=== PATIENT | female | born 1940 | race Two or more races ===

== ENCOUNTER 2020-03-04 23:32 | Inpatient (IN) | payer MEDICARE, MEDICAID ==
[~2020-03-04] VITALS: Ht 162.6 cm; Wt 98.7 kg
[2020-03-05] VITALS (21 sets, daily range): BP systolic 91–170; BP diastolic 48–85
[2020-03-05 00:10] LABS: BASO % 0 % (0-3); EOS % 0 % (0-3); HEMOGLOBIN 10.4 g/dL (12.0-15.5); LYMPH % 13 % (24-48); MEAN CORPUSCULAR HEMOGLOBIN 32 pg (25-35); MEAN CORPUSCULAR HGB CONC 35 g/dL (31-37); MEAN CORPUSCULAR VOLUME 91 fL (79-100); MONO # 0.2 x10^3/uL (0.0-1.1); MONO % 2 % (0-9); NEUT # 6.6 x10^3/uL (1.8-7.7); NEUT % 85 % (31-73); PLATELET COUNT 270 x10^3/uL (140-400); RED BLOOD COUNT 3.29 x10^6/uL (3.50-5.40); RED CELL DISTRIBUTION WIDTH 14.6 % (11.5-14.5); WHITE BLOOD COUNT 7.8 x10^3/uL (4.0-11.0)
[2020-03-05 00:24] LABS: CALCIUM 8.2 mg/dL (8.5-10.1); CREATININE 1.2 mg/dL (0.6-1.0); GFR 43.4; POTASSIUM 4.4 mmol/L (3.5-5.1)
[2020-03-05 00:32] LABS: ALBUMIN 2.4 g/dL (3.4-5.0); ALBUMIN/GLOBULIN RATIO 0.5 (1.0-1.7); TOTAL BILIRUBIN 0.3 mg/dL (0.2-1.0); TOTAL PROTEIN 7.7 g/dL (6.4-8.2)
[2020-03-05] MEDS ORDERED: ACETAMINOPHEN 500 MG TABLET PO ONE (01:00)
--- NOTE | 2020-03-05 01:26 | PHYS DOC ---
Past Medical History Past Medical History: Anxiety, Arthritis, GERD, Glaucoma, Hypertension Additional Past Medical Histor: ANEMIA SCHIZOAFFECTIVE DISORDER Smoking Status: Unknown if ever smoked Alcohol Use: None General Adult EDM: Chief Complaint: SHORTNESS OF BREATH HPI: HPI: Patient is a 79 year old female with a past medical history history of anxiety arthritis GERD glaucoma hypertension anemia presents for the evaluation Of hypoxia. Patient recently diagnosed with COVID. [facility] patient was having decreased oxygen saturation. Patient was on 4 L nasal cannula with an oxygen saturation of 73%. On arrival patient was on 10 L nonrebreather with oxygen saturations in the 90s. At the time my examination patient on 10 L nonrebreather with oxygen saturation of 93%. She is febrile with temperature of 101.4 Patient has no complaints. She denies any headache chest pain. Review of Systems: Review of Systems: Constitutional: Denies fever or chills. [] Eyes: Denies change in visual acuity. [] HENT: Denies nasal congestion or sore throat. [] Respiratory: Denies cough or shortness of breath. [] Cardiovascular: Denies chest pain or edema. [] GI: Denies abdominal pain, nausea, vomiting, bloody stools or diarrhea. [] : Denies dysuria. [] Musculoskeletal: Denies back pain or joint pain. [] Integument: Denies rash. [] Neurologic: Denies headache, focal weakness or sensory changes. [] Endocrine: Denies polyuria or polydipsia. [] Lymphatic: Denies swollen glands. [] Psychiatric: Denies depression or anxiety. [] Heart Score: Risk Factors: Risk Factors: DM, Current or recent (<one month) smoker, HTN, HLP, family history of CAD, obesity. Risk Scores: Score 0 - 3: 2.5% MACE over next 6 weeks - Discharge Home Score 4 - 6: 20.3% MACE over next 6 weeks - Admit for Clinical Observation Score 7 - 10: 72.7% MACE over next 6 weeks - Early Invasive Strategies Current Medications: Current Medications Medications (Trade) Dose Ordered Sig/Jose Maria Start Time Stop Time Status Last Admin Dose Admin Acetaminophen (Tylenol) 1,000 mg 1X ONCE 03/05/20 01:00 03/05/20 01:01 DC Allergies: Allergies: Allergies Coded Allergies Type Severity Reaction Last Updated Verified haloperidol Allergy Unknown Unknown 03/05/20 Yes Physical Exam: PE: Constitutional: Well developed, well nourished, no acute distress, non-toxic appearance. [] HENT: Normocephalic, atraumatic, bilateral external ears normal, oropharynx moist, no oral exudates, nose normal. [] Eyes: EOMI, conjunctiva normal, no discharge. [] Neck: Normal range of motion, no tenderness, supple, no stridor. [] Cardiovascular: Tachycardia Lungs & Thorax: Bilateral breath sounds clear to auscultation [] Abdomen: Abdomen soft Skin: Warm, dry, no erythema, no rash. [] Back: No tenderness, Extremities: No tenderness, no cyanosis, no clubbing, ROM intact, no edema. [] Neurologic: Alert and oriented X 3, normal motor function, normal sensory function, no focal deficits noted. [] Psychologic: Affect normal, judgement normal, mood normal. [] Current Patient Data: Labs: Laboratory Tests Test 03/04/20 23:55 White Blood Count 7.8 x10^3/uL (4.0-11.0) Red Blood Count 3.29 x10^6/uL (3.50-5.40) L Hemoglobin 10.4 g/dL (12.0-15.5) L Hematocrit 30.0 % (36.0-47.0) L Mean Corpuscular Volume 91 fL (79-100) Mean Corpuscular Hemoglobin 32 pg (25-35) Mean Corpuscular Hemoglobin Concent 35 g/dL (31-37) Red Cell Distribution Width 14.6 % (11.5-14.5) H Platelet Count 270 x10^3/uL (140-400) Neutrophils (%) (Auto) 85 % (31-73) H Lymphocytes (%) (Auto) 13 % (24-48) L Monocytes (%) (Auto) 2 % (0-9) Eosinophils (%) (Auto) 0 % (0-3) Basophils (%) (Auto) 0 % (0-3) Neutrophils # (Auto) 6.6 x10^3/uL (1.8-7.7) Lymphocytes # (Auto) 1.0 x10^3/uL (1.0-4.8) Monocytes # (Auto) 0.2 x10^3/uL (0.0-1.1) Eosinophils # (Auto) 0.0 x10^3/uL (0.0-0.7) Basophils # (Auto) 0.0 x10^3/uL (0.0-0.2) Sodium Level 128 mmol/L (136-145) L Potassium Level 4.4 mmol/L (3.5-5.1) Chloride Level 94 mmol/L (98-107) L Carbon Dioxide Level 23 mmol/L (21-32) Anion Gap 11 (6-14) Blood Urea Nitrogen 15 mg/dL (7-20) Creatinine 1.2 mg/dL (0.6-1.0) H Estimated GFR (Cockcroft-Gault) 43.4 BUN/Creatinine Ratio 13 (6-20) Glucose Level 104 mg/dL (70-99) H Calcium Level 8.2 mg/dL (8.5-10.1) L Total Bilirubin 0.3 mg/dL (0.2-1.0) Aspartate Amino Transferase (AST) 70 U/L (15-37) H Alanine Aminotransferase (ALT) 39 U/L (14-59) Alkaline Phosphatase 53 U/L (46-116) Troponin I Quantitative 0.098 ng/mL (0.000-0.055) DV-Vfo-X-Type Natriuretic Peptide 899 pg/mL (0-449) H Total Protein 7.7 g/dL (6.4-8.2) Albumin 2.4 g/dL (3.4-5.0) L Albumin/Globulin Ratio 0.5 (1.0-1.7) L Laboratory Tests 03/04/20 23:55 Laboratory Tests 03/04/20 23:55 Vital Signs: Vital Signs Date Time Temp Pulse Resp B/P (MAP) Pulse Ox O2 Delivery O2 Flow Rate FiO2 03/04/20 23:40 101.4 107 22 113/55 (74) 94 NonRebreather Mask 10.0 101.4 EKG: EKG: [] 0011HRS Sinus tachycardia rate 106 no stemi Radiology/Procedures: Radiology/Procedures: []Two AP erect portable digital radiographs of the chest were obtained. Comparison is made to a CT scan of the chest dated 05/03/2009. The Patient is rotated to the right. The cardiac silhouette is mildly enlarged. The thoracic aorta is tortuous. A left perihilar infiltrate is seen. An area of infiltrate is seen involving the right upper lobe. No pneumothorax or pleural effusion is noted. Degenerative changes are seen involving the thoracic spine along with both shoulders. IMPRESSION: Right upper lobe and left perihilar infiltrates. Course & Med Decision Making: Course & Med Decision Making Pertinent Labs and Imaging studies reviewed. (See chart for details) [] Dragon Disclaimer: Dragon Disclaimer: This electronic medical record was generated, in whole or in part, using a voice recognition dictation system. Departure Departure Impression: Primary Impression: COVID-19 Additional Impressions: Hypoxia Elevated troponin Elevated brain natriuretic peptide (BNP) level Pneumonia Disposition: ADMITTED INPATIENT Condition: STABLE Referrals: MALLORY CRUZ MD (PCP) Justicifation of Admission Dx: Justifications for Admission: Justification of Admission Dx: Yes Aspiration Pneumonia: Hypoxemia KATIE AVILES I DO Mar 05, 2020 01:26
[2020-03-05 01:49] LABS: BASE EXCESS ABG 0 mmol/L (-3-3); HCO3 ABG 24 mmol/L (21-28); PCO2 ABG 36 mmHg (35-46); PO2 ABG 59 mmHg (65-108); SAT O2 ABG 90 % (92-99)
[2020-03-05 01:54] LABS: CORRECTED PCO2 ABG 38 mmHg; CORRECTED PH ABG 7.42; CORRECTED PO2 ABG 65 mmHg
--- NOTE | 2020-03-05 02:39 | RAD ---
AP portable chest radiograph 03/04/2020 Clinical History: Shortness of breath. Two AP erect portable digital radiographs of the chest were obtained. Comparison is made to a CT scan of the chest dated 05/03/2009. The Patient is rotated to the right. The cardiac silhouette is mildly enlarged. The thoracic aorta is tortuous. A left perihilar infiltrate is seen. An area of infiltrate is seen involving the right upper lobe. No pneumothorax or pleural effusion is noted. Degenerative changes are seen involving the thoracic spine along with both shoulders. IMPRESSION: Right upper lobe and left perihilar infiltrates. Electronically signed by: Celestino Champagne MD (03/05/2020 2:36 AM) [id number]
[2020-03-05] MEDS ORDERED: cefTRIAXone IV Push 1 GM VIAL. IVP ONE (02:45)
[2020-03-05] MEDS ORDERED: ASPIRIN CHEWABLE 81 MG TABLET. PO ONE (02:45)
[2020-03-05] MEDS ORDERED: AZITHRMYCN 500MG IVPB FOR OMNI 250 ML IV ONE (02:45)
[2020-03-05 02:57] LABS: FIO2 ABG 100
[2020-03-05] MEDS ORDERED: DULO30CA2 PO (05:12)
[2020-03-05] MEDS ORDERED: MIRA25TA PO (05:13)
[2020-03-05] MEDS ORDERED: FURO-69 PO (05:13)
[2020-03-05] MEDS ORDERED: HYDR-2765 PO (05:14)
[2020-03-05] MEDS ORDERED: AMLO10TA4 PO (05:18)
[2020-03-05] MEDS ORDERED: RISP1TAB43 PO (05:18)
[2020-03-05] MEDS ORDERED: GUAI118S36 PO (05:18)
[2020-03-05] MEDS ORDERED: ACET325T9 PO (05:18)
[2020-03-05] MEDS ORDERED: ONDA4TAB7 PO (05:18)
[2020-03-05] MEDS ORDERED: TIMO5DRO21 LEFTEYE (05:18)
[2020-03-05] MEDS ORDERED: HYDROcodone/APAP 7.5/325MG 1 TAB TABLET PO PRN (08:15)
--- NOTE | 2020-03-05 08:27 | PDOC1 ---
History and Physical Date of Admission Date of Admission DATE: 03/05/20 TIME: 08:06 Identification/Chief Complaint Chief Complaint Shortness of breath Source Source: Caregiver, Chart review, Patient History of Present Illness History of Present Illness Ms. Leija is a 79yo F SNF resident of [facility] w/ PMHx Anxiety, Arthritis, GERD, Glaucoma, Hypertension, anemia, schizoaffective disorder who presents to ED via EMS from SNF with decreased oxygen saturation. Patient was on 4 L nasal cannula with an oxygen saturation of 73%. In ED she was on 10 L nonrebreather with oxygen saturations in the 90s. Febrile with temperature of 101.4F. Was recently diagnosed with SARS-CoV-2 (COVID19) at [facility], lab report not available, unclear what day she was tested positive, though there is report of a small cluster of cases from that facility. Patient has no complaints, but when asked about shortness of breath and cough she says yes. She denies any headache chest pain. Visibly with rapid shallow breathing. Somewhat difficult to understand CXR with right upper lobe and left perihilar infiltrates. ABG 7.42/30 8/65 on 10 L. WBC 7.8, Hb 10.4, platelets 270, NA 128, K4.4, BUN 15, CR 1.2, glucose 104, calcium 8.2, albumin 2.4, bili 0.3, AST elevated at 70, ALT 39, alk phos 53, BNP 899, troponin 0 0.098, lactate normal. Admitted to ICU COVID unit for further care. Past Medical History Cardiovascular: HTN Psych: Psychosis (Schizoaffective disorder) Current Problem List Problem List Problems Medical Problems: (1) COVID-19 Status: Acute (2) Elevated brain natriuretic peptide (BNP) level Status: Acute (3) Elevated troponin Status: Acute (4) Hypoxia Status: Acute (5) Pneumonia Status: Acute Current Medications Current Medications Current Medications Acetaminophen (Tylenol) 1,000 mg 1X ONCE PO Last administered on 03/05/20at 01:48; Start 03/05/20 at 01:00; Stop 03/05/20 at 01:01; Status DC Aspirin (Aspirin Chewable) 324 mg 1X ONCE PO Last administered on 03/05/20at 03:15; Start 03/05/20 at 02:45; Stop 03/05/20 at 02:46; Status DC Ceftriaxone Sodium (Rocephin) 1 gm 1X ONCE IVP Last administered on 03/05/20at 03:15; Start 03/05/20 at 02:45; Stop 03/05/20 at 02:46; Status DC Azithromycin 250 ml @ 250 mls/hr 1X ONCE IV Last administered on 03/05/20at 03:16; Start 03/05/20 at 02:45; Stop 03/05/20 at 03:44; Status DC Active Scripts Active Reported Zofran (Ondansetron Hcl) 4 Mg Tablet 1 Tab PO Q6HRS Tylenol (Acetaminophen) 325 Mg Tablet 0 PO PRN Q4HRS Davidssin Dm Cough & Chest Syrup (Guaifenesin/Dextromethorphan) 118 Ml Syrup 10 Ml PO QID 12 Days Timoptic 0.25% (Timolol Maleate) 5 Ml Drops 1 Drop LEFTEYE DAILY 30 Days Risperdal (Risperidone) 1 Mg Tablet 0.75 Tab PO QHS 30 Days Norvasc (Amlodipine Besylate) 10 Mg Tablet 10 Mg PO DAILY Hydrocodone-Apap 7.5-325 (Hydrocodone Bit/Acetaminophen) 1 Tab Tablet 1 Tab PO PRN Q6HRS PRN Myrbetriq (Mirabegron) 25 Mg Tab.er.24h 25 Mg PO DAILY Lasix (Furosemide) 20 Mg Tablet 1 Tab PO DAILY 30 Days Cymbalta (Duloxetine Hcl) 30 Mg Capsule. 1 Cap PO DAILY Allergies Allergies: Coded Allergies: haloperidol (Verified Allergy, Unknown, Unknown, 03/05/20) DETENTION RECORDS STATE ALLERGY ROS General: YES: Fatigue, Malaise; No: Chills, Night Sweats, Appetite, Other PSYCHOLOGICAL ROS: YES: Anxiety, Behavioral Disorder, Disorientation, Memory difficulties, Mood Swings, Obsessive thoughts; No: Concentration difficultie, Decreased libido, Depression, Hallucinations, Hostility, Irritablity, Physical abuse, Sexual abuse, Sleep disturbances, Suicidal ideation, Other Eyes: No Blurry vision, No Decreased vision, No Double vision, No Dry eyes, No Excessive tearing, No Eye Pain, No Itchy Eyes, No Loss of vision, No Photophobia, No Scotomata, No Uses contacts, No Uses glasses, No Other HEENT: No: Heacaches, Visual Changes, Hearing change, Nasal congestion, Nasal discharge, Oral lesions, Sinus pain, Sore Throat, Epistaxis, Sneezing, Snoring, Tinnitus, Vertigo, Vocal changes, Other ALLERGY AND IMMUNOLOGY: No: Hives, Insect Bite Sensitivity, Itchy/Watery Eyes, Nasal Congestion, Post Nasal Drip, Seasonal Allergies, Other Hematological and Lymphatic: No: Bleeding Problems, Blood Clots, Blood Transfus ions, Brusing, Night Sweats, Pallor, Swollen Lymph Nodes, Other ENDOCRINE: No: Breast Changes, Galactorrhea, Hair Pattern Changes, Hot Flashes, Malaise/lethargy, Mood Swings, Palpitations, Polydipsia/polyuria, Skin Changes, Temperature Intolerance, Unexpected Weight Changes, Other Breast: No New/Changing Breast Lumps, No Nipple changes, No Nipple discharge, No Other Respiratory: YES: Cough, Shortness of breath, Tachypnea, Wheezing; No: Hemoptysis, Orthopnea, Pleuritic Pain, SOB with excertion, Sputum Changes, Stridor, Other Cardiovascular: No Chest Pain, No Palpitations, No Orthopnea, No Paroxysmal Noc. Dyspnea, No Edema, No Lt Headedness, No Other Gastrointestinal: No Nausea, No Vomiting, No Abdominal Pain, No Diarrhea, No Constipation, No Melena, No Hematochezia, No Other Genitourinary: No Dysuria, No Frequency, No Incontinence, No Hematuria, No Retention, No Discharge, No Urgency, No Pain, No Flank Pain, No Other, No , No , No , No , No , No , No Musculoskeletal: Yes Gait Disturbance; No Joint Pain, No Joint Stiffness, No Joint Swelling, No Muscle Pain, No Muscular Weakness, No Pain In:, No Swelling In:, No Other Neurological: No Behavorial Changes, No Bowel/Bladder ControlChng, No Confusion, No Dizziness, No Gait Disturbance, No Headaches, No Impaired Coord/balance, No Memory Loss, No Numbness/Tingling, No Seizures, No Speech Problems, No Tremors, No Visual Changes, No Weakness, No Other Skin: No Dry Skin, No Eczema, No Hair Changes, No Lumps, No Mole Changes, No Mottling, No Nail Changes, No Pruritus, No Rash, No Skin Lesion Changes, No Other, No Acne Physical Exam General: Alert, Cooperative, severe distress HEENT: Atraumatic, PERRLA, EOMI, Mucous membr. moist/pink, Other (Hard of hearing) Lungs: Other (Rhonchi bibasilar) Heart: S1S2, RRR, no thrills, no rubs, no gallops, no murmurs Male Genitals Exam: normal genitalia, normal prostate Extremities: No clubbing, No cyanosis, No edema, Normal pulses, No tenderness/swelling Skin: No rashes, No breakdown, No significant lesion Neuro: Other (Contracted bilateral lower extremities) Psych/Mental Status: Other (Confused) Vitals Vitals Vital Signs Date Time Temp Pulse Resp B/P (MAP) Pulse Ox O2 Delivery O2 Flow Rate FiO2 03/05/20 07:00 98.9 100 18 106/61 (76) 96 NonRebreather Mask 15.0 98.9 Labs Labs Laboratory Tests Test 03/04/20 23:55 03/05/20 00:08 03/05/20 01:48 White Blood Count 7.8 x10^3/uL (4.0-11.0) Red Blood Count 3.29 x10^6/uL (3.50-5.40) Hemoglobin 10.4 g/dL (12.0-15.5) Hematocrit 30.0 % (36.0-47.0) Mean Corpuscular Volume 91 fL (79-100) Mean Corpuscular Hemoglobin 32 pg (25-35) Mean Corpuscular Hemoglobin Concent 35 g/dL (31-37) Red Cell Distribution Width 14.6 % (11.5-14.5) Platelet Count 270 x10^3/uL (140-400) Neutrophils (%) (Auto) 85 % (31-73) Lymphocytes (%) (Auto) 13 % (24-48) Monocytes (%) (Auto) 2 % (0-9) Eosinophils (%) (Auto) 0 % (0-3) Basophils (%) (Auto) 0 % (0-3) Neutrophils # (Auto) 6.6 x10^3/uL (1.8-7.7) Lymphocytes # (Auto) 1.0 x10^3/uL (1.0-4.8) Monocytes # (Auto) 0.2 x10^3/uL (0.0-1.1) Eosinophils # (Auto) 0.0 x10^3/uL (0.0-0.7) Basophils # (Auto) 0.0 x10^3/uL (0.0-0.2) Sodium Level 128 mmol/L (136-145) Potassium Level 4.4 mmol/L (3.5-5.1) Chloride Level 94 mmol/L (98-107) Carbon Dioxide Level 23 mmol/L (21-32) Anion Gap 11 (6-14) Blood Urea Nitrogen 15 mg/dL (7-20) Creatinine 1.2 mg/dL (0.6-1.0) Estimated GFR (Cockcroft-Gault) 43.4 BUN/Creatinine Ratio 13 (6-20) Glucose Level 104 mg/dL (70-99) Calcium Level 8.2 mg/dL (8.5-10.1) Total Bilirubin 0.3 mg/dL (0.2-1.0) Aspartate Amino Transf (AST/SGOT) 70 U/L (15-37) Alanine Aminotransferase (ALT/SGPT) 39 U/L (14-59) Alkaline Phosphatase 53 U/L (46-116) Troponin I Quantitative 0.098 ng/mL (0.000-0.055) EO-Xis-M-Type Natriuretic Peptide 899 pg/mL (0-449) Total Protein 7.7 g/dL (6.4-8.2) Albumin 2.4 g/dL (3.4-5.0) Albumin/Globulin Ratio 0.5 (1.0-1.7) Lactic Acid Level 0.8 mmol/L (0.4-2.0) O2 Saturation 90 % (92-99) Arterial Blood pH 7.44 (7.35-7.45) Arterial Blood pH (Temp corrected) 7.42 Arterial Blood pCO2 at Patient Temp 36 mmHg (35-46) Arterial Blood pCO2 (Temp correct) 38 mmHg Arterial Blood pO2 at Patient Temp 59 mmHg (65-108) Arterial Blood pO2 (Temp corrected) 65 mmHg Arterial Blood HCO3 24 mmol/L (21-28) Arterial Blood Base Excess 0 mmol/L (-3-3) FiO2 100 Laboratory Tests Test 03/04/20 23:55 03/05/20 00:08 03/05/20 01:48 White Blood Count 7.8 x10^3/uL (4.0-11.0) Red Blood Count 3.29 x10^6/uL (3.50-5.40) Hemoglobin 10.4 g/dL (12.0-15.5) Hematocrit 30.0 % (36.0-47.0) Mean Corpuscular Volume 91 fL (79-100) Mean Corpuscular Hemoglobin 32 pg (25-35) Mean Corpuscular Hemoglobin Concent 35 g/dL (31-37) Red Cell Distribution Width 14.6 % (11.5-14.5) Platelet Count 270 x10^3/uL (140-400) Neutrophils (%) (Auto) 85 % (31-73) Lymphocytes (%) (Auto) 13 % (24-48) Monocytes (%) (Auto) 2 % (0-9) Eosinophils (%) (Auto) 0 % (0-3) Basophils (%) (Auto) 0 % (0-3) Neutrophils # (Auto) 6.6 x10^3/uL (1.8-7.7) Lymphocytes # (Auto) 1.0 x10^3/uL (1.0-4.8) Monocytes # (Auto) 0.2 x10^3/uL (0.0-1.1) Eosinophils # (Auto) 0.0 x10^3/uL (0.0-0.7) Basophils # (Auto) 0.0 x10^3/uL (0.0-0.2) Sodium Level 128 mmol/L (136-145) Potassium Level 4.4 mmol/L (3.5-5.1) Chloride Level 94 mmol/L (98-107) Carbon Dioxide Level 23 mmol/L (21-32) Anion Gap 11 (6-14) Blood Urea Nitrogen 15 mg/dL (7-20) Creatinine 1.2 mg/dL (0.6-1.0) Estimated GFR (Cockcroft-Gault) 43.4 BUN/Creatinine Ratio 13 (6-20) Glucose Level 104 mg/dL (70-99) Calcium Level 8.2 mg/dL (8.5-10.1) Total Bilirubin 0.3 mg/dL (0.2-1.0) Aspartate Amino Transf (AST/SGOT) 70 U/L (15-37) Alanine Aminotransferase (ALT/SGPT) 39 U/L (14-59) Alkaline Phosphatase 53 U/L (46-116) Troponin I Quantitative 0.098 ng/mL (0.000-0.055) YT-Moy-X-Type Natriuretic Peptide 899 pg/mL (0-449) Total Protein 7.7 g/dL (6.4-8.2) Albumin 2.4 g/dL (3.4-5.0) Albumin/Globulin Ratio 0.5 (1.0-1.7) Lactic Acid Level 0.8 mmol/L (0.4-2.0) O2 Saturation 90 % (92-99) Arterial Blood pH 7.44 (7.35-7.45) Arterial Blood pH (Temp corrected) 7.42 Arterial Blood pCO2 at Patient Temp 36 mmHg (35-46) Arterial Blood pCO2 (Temp correct) 38 mmHg Arterial Blood pO2 at Patient Temp 59 mmHg (65-108) Arterial Blood pO2 (Temp corrected) 65 mmHg Arterial Blood HCO3 24 mmol/L (21-28) Arterial Blood Base Excess 0 mmol/L (-3-3) FiO2 100 Images Images CXR: Comparison is made to a CT scan of the chest dated 05/03/2009. The Patient is rotated to the right. The cardiac silhouette is mildly enlarged. The thoracic aorta is tortuous. A left perihilar infiltrate is seen. An area of infiltrate is seen involving the right upper lobe. No pneumothorax or pleural effusion is noted. Degenerative changes are seen involving the thoracic spine along with both shoulders. IMPRESSION: Right upper lobe and left perihilar infiltrates. VTE Prophylaxis Ordered VTE Prophylaxis Devices: No VTE Pharmacological Prophylaxi: Yes Assessment/Plan Assessment/Plan A/P: Acute hypoxic respiratory failure - likely related to COVID 19 pneumonia. Vapotherm equipment unavailable, will use BIPAP 07/06 with airborne precautions Sepsis - related to above, will cont antibiotics, fluids Pneumonia - Right upper lobe and left middle lobe, on antibiotics, likely gram negative, but also possibly viral from COVID 19 Elevated troponin - likely type II demand ischemia from hypoxia, will trend Hyponatremia - likely hypovolemic and nutritional deficit, will gently hydrate, mechanic field service to consult for nutrition Severe protein calorie malnutrition - related to COVID 19 pneumonia Transaminitis - AST elevation possibly related to COVID syndrome, will monitor, check coag profile, LDH Anxiety - will give zyprexa zydis and prn BID IV ativan, will watch for sedation or confusion with low threshold of stopping benzos Arthritis - has some bilateral LE contractures GERD - PPI Hypertension - cont mes Anemia Schizoaffective disorder - cont meds FEN - GI soft diet PPX - lovenox BID FULL CODE Dispo - ICU for respiratory failure 09/26 COVID 19 CC time 78 minutes Justicifation of Admission Dx: Justifications for Admission: Justification of Admission Dx: Yes Aspiration Pneumonia: Hypoxemia SAIRA SAHA MD Mar 05, 2020 08:27
[2020-03-05] MEDS ORDERED: ONDANSETRON PF 4 MG/2 ML VIAL. IVP PRN (08:30)
[2020-03-05] MEDS: guaiFENesin DM 200MG/20MG 10 ML SYRUP PO SCH ×4 (10:09→21:00)
[2020-03-05] MEDS: TIMOLOL 0.25% OPHTH SOLUTION 5ML BOTTLE. OU SCH (10:10)
[2020-03-05] MEDS: DULoxetine HCL 30 MG CAPSULE.DR PO SCH (10:11)
[2020-03-05] MEDS: amLODIPine BESYLATE 10 MG TABLET PO SCH (10:12)
[2020-03-05 10:48] LABS: ALBUMIN 2.5 g/dL (3.4-5.0); ALBUMIN/GLOBULIN RATIO 0.4 (1.0-1.7); CALCIUM 8.6 mg/dL (8.5-10.1); CREATININE 1.1 mg/dL (0.6-1.0); POTASSIUM 4.1 mmol/L (3.5-5.1); TOTAL BILIRUBIN 0.2 mg/dL (0.2-1.0); TOTAL PROTEIN 8.7 g/dL (6.4-8.2)
[2020-03-05] MEDS ORDERED: methylPREDNISolone SOD SUCC PF 125 MG/2 ML VIAL. IV ONE (11:00)
[2020-03-05] MEDS ORDERED: methylPREDNISolone SOD SUCC PF 40 MG/ML VIAL. IV ONE (11:00)
[2020-03-05] MEDS: ENOXAPARIN 40 MG/0.4 ML SYRINGE. SQ SCH ×2 (11:16→23:47)
--- NOTE | 2020-03-05 11:30 | NUR ---
at 0850, patient put on 10 lpm high flow NC to determine if she could tolerate being off NRP mask. O2 Saturation down to 88% so patient put back on NRB @ 100% (15L) and oxygen recovered to 97%; @ 0920 RT placed patient on 50% ventimask since during nasal cannula trial she was primarily mouth breathing. Patient's saturation quickly declined to 84-88% so put back on NRB mask 100% (15L).
--- NOTE | 2020-03-05 12:25 | CONS ---
DATE OF CONSULTATION: 03/05/2020 REASON FOR CONSULTATION: I was asked to see this 79-year-old lady for acute respiratory failure. HISTORY OF PRESENT ILLNESS: She is a [facility] resident, was recently diagnosed with COVID-19. Details and date are not known. She was brought to the Emergency Room for hypoxia. She was on 4 liters of oxygen. She had temperature of 101.4. She is currently on 100% nonrebreather mask with O2 saturation of 94%. She has shortness of breath. She has cough. She denies chest pain. PAST MEDICAL HISTORY: Anxiety, arthritis, gastroesophageal reflux disease, anemia, schizophrenia. Recent COVID-19 positive. ALLERGIES: HALOPERIDOL. MEDICATIONS: Rocephin, azithromycin and Lovenox, Risperdal, guaifenesin, and amlodipine. SOCIAL HISTORY: She is a resident of [facility]. FAMILY HISTORY: Hypertension. REVIEW OF SYSTEMS: As mentioned as above. Other systems otherwise negative. PHYSICAL EXAMINATION: GENERAL: This is an overweight lady. VITAL SIGNS: Her O2 saturation on 100% nonrebreather mask is 94%, respiratory rate 30, heart rate 110, blood pressure 132/67, temperature 98.9. HEENT: Normocephalic, atraumatic. She appears tachypneic. LUNGS: There is no audible wheezing. EXTREMITIES: There is no edema. NEUROLOGIC: She is alert. LABORATORY DATA: I reviewed the following lab data: Chest x-ray shows bilateral infiltrate, cardiomegaly. Sodium 125, potassium 4.1, chloride 92, CO2 is 19, BUN 15, creatinine 1.1. GFR 48, AST 73, ALT 32, alkaline phosphatase 71. Troponin 0.029. Procalcitonin 1.04. ABG: pH 7.44, pCO2 of 36, pO2 of 65. WBC 7.8, hemoglobin 10.4, platelet 270. BNP 899. IMPRESSION: 1. Acute hypoxemic respiratory failure secondary to pneumonia, recent COVID-19 positive, rule out congestive heart failure versus others. 2. Abnormal chest x-ray. 3. Pneumonia. 4. Elevated troponin and BNP, ? non-ST elevation myocardial infarction. 5. Acute kidney injury. 6. Hyponatremia. PLAN AND RECOMMENDATIONS: 1. Titrate FiO2 to keep O2 saturation 92%. 2. Bronchodilator p.r.n. 3. Await repeat COVID-19 testing. 4. I do recommend ID consultation. 5. Continue Lovenox for DVT prophylaxis. 6. Add Pepcid for stress ulcer prophylaxis. 7. Continue antibiotic. 8. May consider cardiology consultation. 9. Start steroid 80 mg IV now, then 40 b.i.d. 10. Monitor respiratory status very closely in ICU. 11. She is full code. 12. The findings and recommendations were discussed with RN and RT. Thank you very much for allowing me to participate in care of this very nice lady. The patient is critically ill. This critical care time 30 minutes without overlap. JACKIE WEIR M.D. DR: JAVY/snehal JOB#: [id number] / [id number]
[2020-03-05 13:29] LABS: BASO % 0 % (0-3); EOS % 0 % (0-3); HEMATOCRIT 33.5 % (36.0-47.0); HEMOGLOBIN 11.9 g/dL (12.0-15.5); LYMPH # 0.4 x10^3/uL (1.0-4.8); LYMPH % 4 % (24-48); MEAN CORPUSCULAR HEMOGLOBIN 33 pg (25-35); MEAN CORPUSCULAR HGB CONC 36 g/dL (31-37); MEAN CORPUSCULAR VOLUME 92 fL (79-100); MONO # 0.1 x10^3/uL (0.0-1.1); MONO % 2 % (0-9); NEUT # 9.2 x10^3/uL (1.8-7.7); NEUT % 94 % (31-73); PLATELET COUNT 318 x10^3/uL (140-400); RED BLOOD COUNT 3.65 x10^6/uL (3.50-5.40); RED CELL DISTRIBUTION WIDTH 14.5 % (11.5-14.5); WHITE BLOOD COUNT 9.8 x10^3/uL (4.0-11.0)
[2020-03-05 13:38] LABS: PROTHROMBIN TIME PATIENT 14.1 SEC (11.7-14.0)
[2020-03-05 13:42] LABS: D-DIMER 2.82 ug/mlFEU (0.00-0.50)
--- NOTE | 2020-03-05 13:59 | NUR ---
Dr. Coates notified of the following abnormal labs: Procalcitonin 1.04, Sodium 125, D-Dimer2.84, Fibrinogen 844
--- NOTE | 2020-03-05 15:27 | NUR ---
Patient put on 10 lpm high flow nasal cannula and 50% venti mask in order to maintain sats.
[2020-03-05 15:52] LABS: % BANDS 10 % (0-9); % LYMPHS 3 % (24-48); % MONOS 1 % (0-10); % SEGS 86 % (35-66)
[2020-03-05 15:53] LABS: PLT ESTIMATE ADEQUATE (ADEQUATE); TOXIC GRANULATION SLIGHT
[2020-03-05 17:11] LABS: BASE EXCESS ABG -1 mmol/L (-3-3); HCO3 ABG 22 mmol/L (21-28); PCO2 ABG 30 mmHg (35-46); PO2 ABG 67 mmHg (65-108); SAT O2 ABG 93 % (92-99)
[2020-03-05 17:12] LABS: FIO2 ABG 100
--- NOTE | 2020-03-05 17:24 | NUR ---
guaifenesin not given at this time d/t patient on bipap
[2020-03-05] MEDS: MORPHINE SULFATE 4 MG/ML VIAL. IV PRN ×2 (17:25→23:52)
[2020-03-05] MEDS: risperiDONE 0.25 MG TABLET. PO SCH (21:00)
[2020-03-05] MEDS: methylPREDNISolone SOD SUCC PF 40 MG/ML VIAL. IV SCH (23:26)
[2020-03-05] MEDS: FAMOTIDINE 20 MG/2 ML VIAL IVP SCH (23:48)
[2020-03-06] VITALS (25 sets, daily range): BP systolic 102–162; BP diastolic 42–85
[2020-03-06] MEDS: ACETAMINOPHEN 325 MG TABLET. PO PRN (01:37)
[2020-03-06 05:51] LABS: BASO % 0 % (0-3); EOS % 0 % (0-3); HEMATOCRIT 32.5 % (36.0-47.0); HEMOGLOBIN 11.3 g/dL (12.0-15.5); LYMPH # 0.5 x10^3/uL (1.0-4.8); LYMPH % 6 % (24-48); MEAN CORPUSCULAR HEMOGLOBIN 32 pg (25-35); MEAN CORPUSCULAR HGB CONC 35 g/dL (31-37); MEAN CORPUSCULAR VOLUME 93 fL (79-100); MONO # 0.3 x10^3/uL (0.0-1.1); MONO % 3 % (0-9); NEUT # 8.4 x10^3/uL (1.8-7.7); NEUT % 91 % (31-73); PLATELET COUNT 310 x10^3/uL (140-400); RED BLOOD COUNT 3.51 x10^6/uL (3.50-5.40); RED CELL DISTRIBUTION WIDTH 14.7 % (11.5-14.5); WHITE BLOOD COUNT 9.2 x10^3/uL (4.0-11.0)
[2020-03-06 06:23] LABS: ALBUMIN 2.2 g/dL (3.4-5.0); ALBUMIN/GLOBULIN RATIO 0.4 (1.0-1.7); CALCIUM 8.4 mg/dL (8.5-10.1); CREATININE 1.4 mg/dL (0.6-1.0); GFR 36.4; POTASSIUM 4.4 mmol/L (3.5-5.1); TOTAL BILIRUBIN 0.2 mg/dL (0.2-1.0); TOTAL PROTEIN 8.1 g/dL (6.4-8.2)
[2020-03-06] MEDS: TIMOLOL 0.25% OPHTH SOLUTION 5ML BOTTLE. OU SCH (08:20)
[2020-03-06] MEDS: guaiFENesin DM 200MG/20MG 10 ML SYRUP PO SCH ×2 (08:20→13:00)
[2020-03-06] MEDS: DULoxetine HCL 30 MG CAPSULE.DR PO SCH (08:21)
[2020-03-06] MEDS: ENOXAPARIN 40 MG/0.4 ML SYRINGE. SQ SCH ×2 (08:21→21:02)
[2020-03-06] MEDS: amLODIPine BESYLATE 10 MG TABLET PO SCH (08:21)
[2020-03-06] MEDS: methylPREDNISolone SOD SUCC PF 40 MG/ML VIAL. IV SCH ×2 (08:21→21:03)
--- NOTE | 2020-03-06 08:28 | PDOC ---
PULMONARY PROGRESS NOTES Subjective Patient with no significant respiratory distress on BiPAP Vitals Vital Signs Date Time Temp Pulse Resp B/P (MAP) Pulse Ox O2 Delivery O2 Flow Rate FiO2 03/06/20 08:21 101 162/69 03/06/20 08:19 54 95 BiPAP/CPAP 03/06/20 04:00 99.1 99.1 03/06/20 00:22 15.0 Lungs: Clear Cardiovascular: S1, S2 Abdomen: Soft Neuro Exam: Alert Extremities: No Edema Skin: Warm Labs Laboratory Tests Test 03/04/20 23:55 03/05/20 00:08 03/05/20 01:48 03/05/20 10:15 White Blood Count 7.8 x10^3/uL (4.0-11.0) Red Blood Count 3.29 x10^6/uL (3.50-5.40) Hemoglobin 10.4 g/dL (12.0-15.5) Hematocrit 30.0 % (36.0-47.0) Mean Corpuscular Volume 91 fL (79-100) Mean Corpuscular Hemoglobin 32 pg (25-35) Mean Corpuscular Hemoglobin Concent 35 g/dL (31-37) Red Cell Distribution Width 14.6 % (11.5-14.5) Platelet Count 270 x10^3/uL (140-400) Neutrophils (%) (Auto) 85 % (31-73) Lymphocytes (%) (Auto) 13 % (24-48) Monocytes (%) (Auto) 2 % (0-9) Eosinophils (%) (Auto) 0 % (0-3) Basophils (%) (Auto) 0 % (0-3) Neutrophils # (Auto) 6.6 x10^3/uL (1.8-7.7) Lymphocytes # (Auto) 1.0 x10^3/uL (1.0-4.8) Monocytes # (Auto) 0.2 x10^3/uL (0.0-1.1) Eosinophils # (Auto) 0.0 x10^3/uL (0.0-0.7) Basophils # (Auto) 0.0 x10^3/uL (0.0-0.2) Sodium Level 128 mmol/L (136-145) 125 mmol/L (136-145) Potassium Level 4.4 mmol/L (3.5-5.1) 4.1 mmol/L (3.5-5.1) Chloride Level 94 mmol/L (98-107) 92 mmol/L (98-107) Carbon Dioxide Level 23 mmol/L (21-32) 19 mmol/L (21-32) Anion Gap 11 (6-14) 14 (6-14) Blood Urea Nitrogen 15 mg/dL (7-20) 15 mg/dL (7-20) Creatinine 1.2 mg/dL (0.6-1.0) 1.1 mg/dL (0.6-1.0) Estimated GFR (Cockcroft-Gault) 43.4 48.0 BUN/Creatinine Ratio 13 (6-20) 14 (6-20) Glucose Level 104 mg/dL (70-99) 97 mg/dL (70-99) Calcium Level 8.2 mg/dL (8.5-10.1) 8.6 mg/dL (8.5-10.1) Total Bilirubin 0.3 mg/dL (0.2-1.0) 0.2 mg/dL (0.2-1.0) Aspartate Amino Transf (AST/SGOT) 70 U/L (15-37) 73 U/L (15-37) Alanine Aminotransferase (ALT/SGPT) 39 U/L (14-59) 32 U/L (14-59) Alkaline Phosphatase 53 U/L (46-116) 71 U/L (46-116) Troponin I Quantitative 0.098 ng/mL (0.000-0.055) CB-Sxt-N-Type Natriuretic Peptide 899 pg/mL (0-449) Total Protein 7.7 g/dL (6.4-8.2) 8.7 g/dL (6.4-8.2) Albumin 2.4 g/dL (3.4-5.0) 2.5 g/dL (3.4-5.0) Albumin/Globulin Ratio 0.5 (1.0-1.7) 0.4 (1.0-1.7) Lactic Acid Level 0.8 mmol/L (0.4-2.0) O2 Saturation 90 % (92-99) Arterial Blood pH 7.44 (7.35-7.45) Arterial Blood pH (Temp corrected) 7.42 Arterial Blood pCO2 at Patient Temp 36 mmHg (35-46) Arterial Blood pCO2 (Temp correct) 38 mmHg Arterial Blood pO2 at Patient Temp 59 mmHg (65-108) Arterial Blood pO2 (Temp corrected) 65 mmHg Arterial Blood HCO3 24 mmol/L (21-28) Arterial Blood Base Excess 0 mmol/L (-3-3) FiO2 100 Lactate Dehydrogenase 501 U/L (81-234) Procalcitonin 1.04 ng/mL (0.00-0.10) Test 03/05/20 10:32 03/05/20 13:05 03/05/20 17:00 03/05/20 17:40 Troponin I Quantitative 0.029 ng/mL (0.000-0.055) 0.036 ng/mL (0.000-0.055) White Blood Count 9.8 x10^3/uL (4.0-11.0) Red Blood Count 3.65 x10^6/uL (3.50-5.40) Hemoglobin 11.9 g/dL (12.0-15.5) Hematocrit 33.5 % (36.0-47.0) Mean Corpuscular Volume 92 fL (79-100) Mean Corpuscular Hemoglobin 33 pg (25-35) Mean Corpuscular Hemoglobin Concent 36 g/dL (31-37) Red Cell Distribution Width 14.5 % (11.5-14.5) Platelet Count 318 x10^3/uL (140-400) Neutrophils (%) (Auto) 94 % (31-73) Lymphocytes (%) (Auto) 4 % (24-48) Monocytes (%) (Auto) 2 % (0-9) Eosinophils (%) (Auto) 0 % (0-3) Basophils (%) (Auto) 0 % (0-3) Neutrophils # (Auto) 9.2 x10^3/uL (1.8-7.7) Lymphocytes # (Auto) 0.4 x10^3/uL (1.0-4.8) Monocytes # (Auto) 0.1 x10^3/uL (0.0-1.1) Eosinophils # (Auto) 0.0 x10^3/uL (0.0-0.7) Basophils # (Auto) 0.0 x10^3/uL (0.0-0.2) Segmented Neutrophils % 86 % (35-66) Band Neutrophils % 10 % (0-9) Lymphocytes % 3 % (24-48) Monocytes % 1 % (0-10) Toxic Granulation Slight Platelet Estimate Adequate (ADEQUATE) Prothrombin Time 14.1 SEC (11.7-14.0) Prothromb Time International Ratio 1.1 (0.8-1.1) Fibrinogen 844 mg/dL (200-440) D-Dimer (Honey) 2.82 ug/mlFEU (0.00-0.50) O2 Saturation 93 % (92-99) Arterial Blood pH 7.48 (7.35-7.45) Arterial Blood pCO2 at Patient Temp 30 mmHg (35-46) Arterial Blood pO2 at Patient Temp 67 mmHg (65-108) Arterial Blood HCO3 22 mmol/L (21-28) Arterial Blood Base Excess -1 mmol/L (-3-3) FiO2 100 Test 03/06/20 05:20 White Blood Count 9.2 x10^3/uL (4.0-11.0) Red Blood Count 3.51 x10^6/uL (3.50-5.40) Hemoglobin 11.3 g/dL (12.0-15.5) Hematocrit 32.5 % (36.0-47.0) Mean Corpuscular Volume 93 fL (79-100) Mean Corpuscular Hemoglobin 32 pg (25-35) Mean Corpuscular Hemoglobin Concent 35 g/dL (31-37) Red Cell Distribution Width 14.7 % (11.5-14.5) Platelet Count 310 x10^3/uL (140-400) Neutrophils (%) (Auto) 91 % (31-73) Lymphocytes (%) (Auto) 6 % (24-48) Monocytes (%) (Auto) 3 % (0-9) Eosinophils (%) (Auto) 0 % (0-3) Basophils (%) (Auto) 0 % (0-3) Neutrophils # (Auto) 8.4 x10^3/uL (1.8-7.7) Lymphocytes # (Auto) 0.5 x10^3/uL (1.0-4.8) Monocytes # (Auto) 0.3 x10^3/uL (0.0-1.1) Eosinophils # (Auto) 0.0 x10^3/uL (0.0-0.7) Basophils # (Auto) 0.0 x10^3/uL (0.0-0.2) Sodium Level 132 mmol/L (136-145) Potassium Level 4.4 mmol/L (3.5-5.1) Chloride Level 97 mmol/L (98-107) Carbon Dioxide Level 22 mmol/L (21-32) Anion Gap 13 (6-14) Blood Urea Nitrogen 24 mg/dL (7-20) Creatinine 1.4 mg/dL (0.6-1.0) Estimated GFR (Cockcroft-Gault) 36.4 BUN/Creatinine Ratio 17 (6-20) Glucose Level 134 mg/dL (70-99) Calcium Level 8.4 mg/dL (8.5-10.1) Total Bilirubin 0.2 mg/dL (0.2-1.0) Aspartate Amino Transf (AST/SGOT) 62 U/L (15-37) Alanine Aminotransferase (ALT/SGPT) 35 U/L (14-59) Alkaline Phosphatase 63 U/L (46-116) Total Protein 8.1 g/dL (6.4-8.2) Albumin 2.2 g/dL (3.4-5.0) Albumin/Globulin Ratio 0.4 (1.0-1.7) Laboratory Tests Test 03/05/20 10:15 03/05/20 10:32 03/05/20 13:05 03/05/20 17:00 Sodium Level 125 mmol/L (136-145) Potassium Level 4.1 mmol/L (3.5-5.1) Chloride Level 92 mmol/L (98-107) Carbon Dioxide Level 19 mmol/L (21-32) Anion Gap 14 (6-14) Blood Urea Nitrogen 15 mg/dL (7-20) Creatinine 1.1 mg/dL (0.6-1.0) Estimated GFR (Cockcroft-Gault) 48.0 BUN/Creatinine Ratio 14 (6-20) Glucose Level 97 mg/dL (70-99) Calcium Level 8.6 mg/dL (8.5-10.1) Total Bilirubin 0.2 mg/dL (0.2-1.0) Aspartate Amino Transf (AST/SGOT) 73 U/L (15-37) Alanine Aminotransferase (ALT/SGPT) 32 U/L (14-59) Alkaline Phosphatase 71 U/L (46-116) Lactate Dehydrogenase 501 U/L (81-234) Total Protein 8.7 g/dL (6.4-8.2) Albumin 2.5 g/dL (3.4-5.0) Albumin/Globulin Ratio 0.4 (1.0-1.7) Procalcitonin 1.04 ng/mL (0.00-0.10) Troponin I Quantitative 0.029 ng/mL (0.000-0.055) White Blood Count 9.8 x10^3/uL (4.0-11.0) Red Blood Count 3.65 x10^6/uL (3.50-5.40) Hemoglobin 11.9 g/dL (12.0-15.5) Hematocrit 33.5 % (36.0-47.0) Mean Corpuscular Volume 92 fL (79-100) Mean Corpuscular Hemoglobin 33 pg (25-35) Mean Corpuscular Hemoglobin Concent 36 g/dL (31-37) Red Cell Distribution Width 14.5 % (11.5-14.5) Platelet Count 318 x10^3/uL (140-400) Neutrophils (%) (Auto) 94 % (31-73) Lymphocytes (%) (Auto) 4 % (24-48) Monocytes (%) (Auto) 2 % (0-9) Eosinophils (%) (Auto) 0 % (0-3) Basophils (%) (Auto) 0 % (0-3) Neutrophils # (Auto) 9.2 x10^3/uL (1.8-7.7) Lymphocytes # (Auto) 0.4 x10^3/uL (1.0-4.8) Monocytes # (Auto) 0.1 x10^3/uL (0.0-1.1) Eosinophils # (Auto) 0.0 x10^3/uL (0.0-0.7) Basophils # (Auto) 0.0 x10^3/uL (0.0-0.2) Segmented Neutrophils % 86 % (35-66) Band Neutrophils % 10 % (0-9) Lymphocytes % 3 % (24-48) Monocytes % 1 % (0-10) Toxic Granulation Slight Platelet Estimate Adequate (ADEQUATE) Prothrombin Time 14.1 SEC (11.7-14.0) Prothromb Time International Ratio 1.1 (0.8-1.1) Fibrinogen 844 mg/dL (200-440) D-Dimer (Honey) 2.82 ug/mlFEU (0.00-0.50) O2 Saturation 93 % (92-99) Arterial Blood pH 7.48 (7.35-7.45) Arterial Blood pCO2 at Patient Temp 30 mmHg (35-46) Arterial Blood pO2 at Patient Temp 67 mmHg (65-108) Arterial Blood HCO3 22 mmol/L (21-28) Arterial Blood Base Excess -1 mmol/L (-3-3) FiO2 100 Test 03/05/20 17:40 03/06/20 05:20 Troponin I Quantitative 0.036 ng/mL (0.000-0.055) White Blood Count 9.2 x10^3/uL (4.0-11.0) Red Blood Count 3.51 x10^6/uL (3.50-5.40) Hemoglobin 11.3 g/dL (12.0-15.5) Hematocrit 32.5 % (36.0-47.0) Mean Corpuscular Volume 93 fL (79-100) Mean Corpuscular Hemoglobin 32 pg (25-35) Mean Corpuscular Hemoglobin Concent 35 g/dL (31-37) Red Cell Distribution Width 14.7 % (11.5-14.5) Platelet Count 310 x10^3/uL (140-400) Neutrophils (%) (Auto) 91 % (31-73) Lymphocytes (%) (Auto) 6 % (24-48) Monocytes (%) (Auto) 3 % (0-9) Eosinophils (%) (Auto) 0 % (0-3) Basophils (%) (Auto) 0 % (0-3) Neutrophils # (Auto) 8.4 x10^3/uL (1.8-7.7) Lymphocytes # (Auto) 0.5 x10^3/uL (1.0-4.8) Monocytes # (Auto) 0.3 x10^3/uL (0.0-1.1) Eosinophils # (Auto) 0.0 x10^3/uL (0.0-0.7) Basophils # (Auto) 0.0 x10^3/uL (0.0-0.2) Sodium Level 132 mmol/L (136-145) Potassium Level 4.4 mmol/L (3.5-5.1) Chloride Level 97 mmol/L (98-107) Carbon Dioxide Level 22 mmol/L (21-32) Anion Gap 13 (6-14) Blood Urea Nitrogen 24 mg/dL (7-20) Creatinine 1.4 mg/dL (0.6-1.0) Estimated GFR (Cockcroft-Gault) 36.4 BUN/Creatinine Ratio 17 (6-20) Glucose Level 134 mg/dL (70-99) Calcium Level 8.4 mg/dL (8.5-10.1) Total Bilirubin 0.2 mg/dL (0.2-1.0) Aspartate Amino Transf (AST/SGOT) 62 U/L (15-37) Alanine Aminotransferase (ALT/SGPT) 35 U/L (14-59) Alkaline Phosphatase 63 U/L (46-116) Total Protein 8.1 g/dL (6.4-8.2) Albumin 2.2 g/dL (3.4-5.0) Albumin/Globulin Ratio 0.4 (1.0-1.7) Medications Active Scripts Medications Dose Route/Sig Max Daily Dose Days Date Category Zofran (Ondansetron Hcl) 4 Mg Tablet 1 Tab PO Q6HRS 03/05/20 Reported Tylenol (Acetaminophen) 325 Mg Tablet 0 PO PRN Q4HRS 03/05/20 Reported Tussin Dm Cough & Chest Syrup (Guaifenesin/Dextromethorphan) 118 Ml Syrup 10 Ml PO QID 12 03/05/20 Reported Timoptic 0.25% (Timolol Maleate) 5 Ml Drops 1 Drop LEFTEYE DAILY 30 03/05/20 Reported Risperdal (Risperidone) 1 Mg Tablet 0.75 Tab PO QHS 30 03/05/20 Reported Norvasc (Amlodipine Besylate) 10 Mg Tablet 10 Mg PO DAILY 03/05/20 Reported Hydrocodone-Apap 7.5-325 (Hydrocodone Bit/Acetaminophen) 1 Tab Tablet 1 Tab PO PRN Q6HRS PRN 03/05/20 Reported Myrbetriq (Mirabegron) 25 Mg Tab.er.24h 25 Mg PO DAILY 03/05/20 Reported Lasix (Furosemide) 20 Mg Tablet 1 Tab PO DAILY 30 03/05/20 Reported Cymbalta (Duloxetine Hcl) 30 Mg Capsule. 1 Cap PO DAILY 03/05/20 Reported Impression . IMPRESSION: 1. Acute hypoxemic respiratory failure secondary to pneumonia, recent SARS-CoV-2 positive 2. Abnormal chest x-ray. Possible viral pneumonia, bacterial pneumonia 3. Pneumonia. 4. Elevated troponin/non-ST segment elevation GA 5. Acute kidney injury. 6. Hyponatremia. 7. Fever Plan . Continue BiPAP Empiric antibiotics per ID Bronchodilators DVT GI prophylaxis Steroids Case discussed with RN and RT Total cumulative critical care time of 30 minutes reviewing data, labs, chest x- ray, and formulating a plan. ALLISON CARRERO MD Mar 06, 2020 08:28
[2020-03-06 08:33] LABS: BASE EXCESS ABG -4 mmol/L (-3-3); HCO3 ABG 21 mmol/L (21-28); PCO2 ABG 39 mmHg (35-46); PO2 ABG 84 mmHg (65-108); SAT O2 ABG 95 % (92-99)
[2020-03-06] MEDS: IV NORMAL SALINE 1000ML BAG 1,000 ML IV SCH ×2 (09:30→23:20)
[2020-03-06] MEDS: AMINO AC 3%/ELECTROLYTE/GLYCER 1,000 ML IV SCH ×2 (09:30→23:02)
--- NOTE | 2020-03-06 09:49 | PDOC ---
PROGRESS NOTES Chief Complaint Chief Complaint A/P: Acute hypoxic respiratory failure - likely related to COVID 19 pneumonia. Vapotherm equipment unavailable, will use BIPAP 07/06 with airborne precautions Sepsis - related to above, will cont antibiotics, fluids Pneumonia - Right upper lobe and left middle lobe, on antibiotics, likely gram negative, but also possibly viral from COVID 19 Elevated troponin - likely type II demand ischemia from hypoxia, will trend Hyponatremia - likely hypovolemic and nutritional deficit, will gently hydrate, chip tester to consult for nutrition Severe protein calorie malnutrition - related to COVID 19 pneumonia Transaminitis - AST elevation possibly related to COVID syndrome, will monitor, check coag profile, LDH Anxiety - will give zyprexa zydis and prn BID IV ativan, will watch for sedation or confusion with low threshold of stopping benzos Arthritis - has some bilateral LE contractures GERD - PPI Hypertension - cont mes Anemia Schizoaffective disorder - cont meds FEN - GI soft diet, NSS and procalamine PPX - lovenox BID FULL CODE Dispo - ICU for respiratory failure 2/2 COVID 19 CC time 78 minutes History of Present Illness History of Present Illness Ms. Leija is a 79yo F SNF resident of [facility] w/ PMHx Anxiety, Arthritis, GERD, Glaucoma, Hypertension, anemia, schizoaffective disorder who presents to ED via EMS from with decreased oxygen saturation. Patient was on 4 L nasal cannula with an oxygen saturation of 73%. In ED she was on 10 L nonrebreather with oxygen saturations in the 90s. Febrile with temperature of 101.4F. Was recently diagnosed with SARS-CoV-2 (COVID19) at , lab report not available, unclear what day she was tested positive, though there is report of a small cluster of cases from that facility. Patient has no complaints, but when asked about shortness of breath and cough she says yes. She denies any headache chest pain. Visibly with rapid shallow breathing. Somewhat difficult to understand CXR with right upper lobe and left perihilar infiltrates. ABG 7.42/30 8/65 on 10 L. WBC 7.8, Hb 10.4, platelets 270, NA 128, K4.4, BUN 15, CR 1.2, glucose 104, calcium 8.2, albumin 2.4, bili 0.3, AST elevated at 70, ALT 39, alk phos 53, BNP 899, troponin 0 0.098, lactate normal. Admitted to ICU COVID unit for further care. Febrile 101 4 F overnight. Unable to tolerate facemask O2 desaturations down to 84%, shielded BiPAP 07/06 ordered patient was more comfortable with that in addition of morphine and is unable to take the BiPAP off for any amount of time to take anything other than medications. Vitals Vitals Vital Signs Date Time Temp Pulse Resp B/P (MAP) Pulse Ox O2 Delivery O2 Flow Rate FiO2 03/06/20 09:03 97 28 114/58 (76) 96 BiPAP/CPAP 03/06/20 08:19 99.4 99.4 03/06/20 00:22 15.0 Physical Exam General: Alert, Cooperative, severe distress Heart: Regular rate, Normal S1, Normal S2 Lungs: Crackles Extremities: No clubbing, No cyanosis, No edema, Normal pulses, No tenderness/swelling Skin: No rashes, No breakdown, No significant lesion Labs LABS Laboratory Tests Test 03/05/20 10:15 03/05/20 10:32 03/05/20 13:05 03/05/20 17:00 Sodium Level 125 mmol/L (136-145) Potassium Level 4.1 mmol/L (3.5-5.1) Chloride Level 92 mmol/L (98-107) Carbon Dioxide Level 19 mmol/L (21-32) Anion Gap 14 (6-14) Blood Urea Nitrogen 15 mg/dL (7-20) Creatinine 1.1 mg/dL (0.6-1.0) Estimated GFR (Cockcroft-Gault) 48.0 BUN/Creatinine Ratio 14 (6-20) Glucose Level 97 mg/dL (70-99) Calcium Level 8.6 mg/dL (8.5-10.1) Total Bilirubin 0.2 mg/dL (0.2-1.0) Aspartate Amino Transf (AST/SGOT) 73 U/L (15-37) Alanine Aminotransferase (ALT/SGPT) 32 U/L (14-59) Alkaline Phosphatase 71 U/L (46-116) Lactate Dehydrogenase 501 U/L (81-234) Total Protein 8.7 g/dL (6.4-8.2) Albumin 2.5 g/dL (3.4-5.0) Albumin/Globulin Ratio 0.4 (1.0-1.7) Procalcitonin 1.04 ng/mL (0.00-0.10) Troponin I Quantitative 0.029 ng/mL (0.000-0.055) White Blood Count 9.8 x10^3/uL (4.0-11.0) Red Blood Count 3.65 x10^6/uL (3.50-5.40) Hemoglobin 11.9 g/dL (12.0-15.5) Hematocrit 33.5 % (36.0-47.0) Mean Corpuscular Volume 92 fL (79-100) Mean Corpuscular Hemoglobin 33 pg (25-35) Mean Corpuscular Hemoglobin Concent 36 g/dL (31-37) Red Cell Distribution Width 14.5 % (11.5-14.5) Platelet Count 318 x10^3/uL (140-400) Neutrophils (%) (Auto) 94 % (31-73) Lymphocytes (%) (Auto) 4 % (24-48) Monocytes (%) (Auto) 2 % (0-9) Eosinophils (%) (Auto) 0 % (0-3) Basophils (%) (Auto) 0 % (0-3) Neutrophils # (Auto) 9.2 x10^3/uL (1.8-7.7) Lymphocytes # (Auto) 0.4 x10^3/uL (1.0-4.8) Monocytes # (Auto) 0.1 x10^3/uL (0.0-1.1) Eosinophils # (Auto) 0.0 x10^3/uL (0.0-0.7) Basophils # (Auto) 0.0 x10^3/uL (0.0-0.2) Segmented Neutrophils % 86 % (35-66) Band Neutrophils % 10 % (0-9) Lymphocytes % 3 % (24-48) Monocytes % 1 % (0-10) Toxic Granulation Slight Platelet Estimate Adequate (ADEQUATE) Prothrombin Time 14.1 SEC (11.7-14.0) Prothromb Time International Ratio 1.1 (0.8-1.1) Fibrinogen 844 mg/dL (200-440) D-Dimer (Honey) 2.82 ug/mlFEU (0.00-0.50) O2 Saturation 93 % (92-99) Arterial Blood pH 7.48 (7.35-7.45) Arterial Blood pCO2 at Patient Temp 30 mmHg (35-46) Arterial Blood pO2 at Patient Temp 67 mmHg (65-108) Arterial Blood HCO3 22 mmol/L (21-28) Arterial Blood Base Excess -1 mmol/L (-3-3) FiO2 100 Test 03/05/20 17:40 03/06/20 05:20 Troponin I Quantitative 0.036 ng/mL (0.000-0.055) White Blood Count 9.2 x10^3/uL (4.0-11.0) Red Blood Count 3.51 x10^6/uL (3.50-5.40) Hemoglobin 11.3 g/dL (12.0-15.5) Hematocrit 32.5 % (36.0-47.0) Mean Corpuscular Volume 93 fL (79-100) Mean Corpuscular Hemoglobin 32 pg (25-35) Mean Corpuscular Hemoglobin Concent 35 g/dL (31-37) Red Cell Distribution Width 14.7 % (11.5-14.5) Platelet Count 310 x10^3/uL (140-400) Neutrophils (%) (Auto) 91 % (31-73) Lymphocytes (%) (Auto) 6 % (24-48) Monocytes (%) (Auto) 3 % (0-9) Eosinophils (%) (Auto) 0 % (0-3) Basophils (%) (Auto) 0 % (0-3) Neutrophils # (Auto) 8.4 x10^3/uL (1.8-7.7) Lymphocytes # (Auto) 0.5 x10^3/uL (1.0-4.8) Monocytes # (Auto) 0.3 x10^3/uL (0.0-1.1) Eosinophils # (Auto) 0.0 x10^3/uL (0.0-0.7) Basophils # (Auto) 0.0 x10^3/uL (0.0-0.2) Sodium Level 132 mmol/L (136-145) Potassium Level 4.4 mmol/L (3.5-5.1) Chloride Level 97 mmol/L (98-107) Carbon Dioxide Level 22 mmol/L (21-32) Anion Gap 13 (6-14) Blood Urea Nitrogen 24 mg/dL (7-20) Creatinine 1.4 mg/dL (0.6-1.0) Estimated GFR (Cockcroft-Gault) 36.4 BUN/Creatinine Ratio 17 (6-20) Glucose Level 134 mg/dL (70-99) Calcium Level 8.4 mg/dL (8.5-10.1) Total Bilirubin 0.2 mg/dL (0.2-1.0) Aspartate Amino Transf (AST/SGOT) 62 U/L (15-37) Alanine Aminotransferase (ALT/SGPT) 35 U/L (14-59) Alkaline Phosphatase 63 U/L (46-116) Total Protein 8.1 g/dL (6.4-8.2) Albumin 2.2 g/dL (3.4-5.0) Albumin/Globulin Ratio 0.4 (1.0-1.7) Assessment and Plan Assessmemt and Plan Problems Medical Problems: (1) COVID-19 Status: Acute (2) Elevated brain natriuretic peptide (BNP) level Status: Acute (3) Elevated troponin Status: Acute (4) Hypoxia Status: Acute (5) Pneumonia Status: Acute Comment Review of Relevant I have reviewed the following items lena (where applicable) has been applied. Labs Laboratory Tests Test 03/04/20 23:55 03/05/20 00:08 03/05/20 01:48 03/05/20 10:15 White Blood Count 7.8 x10^3/uL (4.0-11.0) Red Blood Count 3.29 x10^6/uL (3.50-5.40) Hemoglobin 10.4 g/dL (12.0-15.5) Hematocrit 30.0 % (36.0-47.0) Mean Corpuscular Volume 91 fL (79-100) Mean Corpuscular Hemoglobin 32 pg (25-35) Mean Corpuscular Hemoglobin Concent 35 g/dL (31-37) Red Cell Distribution Width 14.6 % (11.5-14.5) Platelet Count 270 x10^3/uL (140-400) Neutrophils (%) (Auto) 85 % (31-73) Lymphocytes (%) (Auto) 13 % (24-48) Monocytes (%) (Auto) 2 % (0-9) Eosinophils (%) (Auto) 0 % (0-3) Basophils (%) (Auto) 0 % (0-3) Neutrophils # (Auto) 6.6 x10^3/uL (1.8-7.7) Lymphocytes # (Auto) 1.0 x10^3/uL (1.0-4.8) Monocytes # (Auto) 0.2 x10^3/uL (0.0-1.1) Eosinophils # (Auto) 0.0 x10^3/uL (0.0-0.7) Basophils # (Auto) 0.0 x10^3/uL (0.0-0.2) Sodium Level 128 mmol/L (136-145) 125 mmol/L (136-145) Potassium Level 4.4 mmol/L (3.5-5.1) 4.1 mmol/L (3.5-5.1) Chloride Level 94 mmol/L (98-107) 92 mmol/L (98-107) Carbon Dioxide Level 23 mmol/L (21-32) 19 mmol/L (21-32) Anion Gap 11 (6-14) 14 (6-14) Blood Urea Nitrogen 15 mg/dL (7-20) 15 mg/dL (7-20) Creatinine 1.2 mg/dL (0.6-1.0) 1.1 mg/dL (0.6-1.0) Estimated GFR (Cockcroft-Gault) 43.4 48.0 BUN/Creatinine Ratio 13 (6-20) 14 (6-20) Glucose Level 104 mg/dL (70-99) 97 mg/dL (70-99) Calcium Level 8.2 mg/dL (8.5-10.1) 8.6 mg/dL (8.5-10.1) Total Bilirubin 0.3 mg/dL (0.2-1.0) 0.2 mg/dL (0.2-1.0) Aspartate Amino Transf (AST/SGOT) 70 U/L (15-37) 73 U/L (15-37) Alanine Aminotransferase (ALT/SGPT) 39 U/L (14-59) 32 U/L (14-59) Alkaline Phosphatase 53 U/L (46-116) 71 U/L (46-116) Troponin I Quantitative 0.098 ng/mL (0.000-0.055) FM-Czz-B-Type Natriuretic Peptide 899 pg/mL (0-449) Total Protein 7.7 g/dL (6.4-8.2) 8.7 g/dL (6.4-8.2) Albumin 2.4 g/dL (3.4-5.0) 2.5 g/dL (3.4-5.0) Albumin/Globulin Ratio 0.5 (1.0-1.7) 0.4 (1.0-1.7) Lactic Acid Level 0.8 mmol/L (0.4-2.0) O2 Saturation 90 % (92-99) Arterial Blood pH 7.44 (7.35-7.45) Arterial Blood pH (Temp corrected) 7.42 Arterial Blood pCO2 at Patient Temp 36 mmHg (35-46) Arterial Blood pCO2 (Temp correct) 38 mmHg Arterial Blood pO2 at Patient Temp 59 mmHg (65-108) Arterial Blood pO2 (Temp corrected) 65 mmHg Arterial Blood HCO3 24 mmol/L (21-28) Arterial Blood Base Excess 0 mmol/L (-3-3) FiO2 100 Lactate Dehydrogenase 501 U/L (81-234) Procalcitonin 1.04 ng/mL (0.00-0.10) Test 03/05/20 10:32 03/05/20 13:05 03/05/20 17:00 03/05/20 17:40 Troponin I Quantitative 0.029 ng/mL (0.000-0.055) 0.036 ng/mL (0.000-0.055) White Blood Count 9.8 x10^3/uL (4.0-11.0) Red Blood Count 3.65 x10^6/uL (3.50-5.40) Hemoglobin 11.9 g/dL (12.0-15.5) Hematocrit 33.5 % (36.0-47.0) Mean Corpuscular Volume 92 fL (79-100) Mean Corpuscular Hemoglobin 33 pg (25-35) Mean Corpuscular Hemoglobin Concent 36 g/dL (31-37) Red Cell Distribution Width 14.5 % (11.5-14.5) Platelet Count 318 x10^3/uL (140-400) Neutrophils (%) (Auto) 94 % (31-73) Lymphocytes (%) (Auto) 4 % (24-48) Monocytes (%) (Auto) 2 % (0-9) Eosinophils (%) (Auto) 0 % (0-3) Basophils (%) (Auto) 0 % (0-3) Neutrophils # (Auto) 9.2 x10^3/uL (1.8-7.7) Lymphocytes # (Auto) 0.4 x10^3/uL (1.0-4.8) Monocytes # (Auto) 0.1 x10^3/uL (0.0-1.1) Eosinophils # (Auto) 0.0 x10^3/uL (0.0-0.7) Basophils # (Auto) 0.0 x10^3/uL (0.0-0.2) Segmented Neutrophils % 86 % (35-66) Band Neutrophils % 10 % (0-9) Lymphocytes % 3 % (24-48) Monocytes % 1 % (0-10) Toxic Granulation Slight Platelet Estimate Adequate (ADEQUATE) Prothrombin Time 14.1 SEC (11.7-14.0) Prothromb Time International Ratio 1.1 (0.8-1.1) Fibrinogen 844 mg/dL (200-440) D-Dimer (Honey) 2.82 ug/mlFEU (0.00-0.50) O2 Saturation 93 % (92-99) Arterial Blood pH 7.48 (7.35-7.45) Arterial Blood pCO2 at Patient Temp 30 mmHg (35-46) Arterial Blood pO2 at Patient Temp 67 mmHg (65-108) Arterial Blood HCO3 22 mmol/L (21-28) Arterial Blood Base Excess -1 mmol/L (-3-3) FiO2 100 Test 03/06/20 05:20 White Blood Count 9.2 x10^3/uL (4.0-11.0) Red Blood Count 3.51 x10^6/uL (3.50-5.40) Hemoglobin 11.3 g/dL (12.0-15.5) Hematocrit 32.5 % (36.0-47.0) Mean Corpuscular Volume 93 fL (79-100) Mean Corpuscular Hemoglobin 32 pg (25-35) Mean Corpuscular Hemoglobin Concent 35 g/dL (31-37) Red Cell Distribution Width 14.7 % (11.5-14.5) Platelet Count 310 x10^3/uL (140-400) Neutrophils (%) (Auto) 91 % (31-73) Lymphocytes (%) (Auto) 6 % (24-48) Monocytes (%) (Auto) 3 % (0-9) Eosinophils (%) (Auto) 0 % (0-3) Basophils (%) (Auto) 0 % (0-3) Neutrophils # (Auto) 8.4 x10^3/uL (1.8-7.7) Lymphocytes # (Auto) 0.5 x10^3/uL (1.0-4.8) Monocytes # (Auto) 0.3 x10^3/uL (0.0-1.1) Eosinophils # (Auto) 0.0 x10^3/uL (0.0-0.7) Basophils # (Auto) 0.0 x10^3/uL (0.0-0.2) Sodium Level 132 mmol/L (136-145) Potassium Level 4.4 mmol/L (3.5-5.1) Chloride Level 97 mmol/L (98-107) Carbon Dioxide Level 22 mmol/L (21-32) Anion Gap 13 (6-14) Blood Urea Nitrogen 24 mg/dL (7-20) Creatinine 1.4 mg/dL (0.6-1.0) Estimated GFR (Cockcroft-Gault) 36.4 BUN/Creatinine Ratio 17 (6-20) Glucose Level 134 mg/dL (70-99) Calcium Level 8.4 mg/dL (8.5-10.1) Total Bilirubin 0.2 mg/dL (0.2-1.0) Aspartate Amino Transf (AST/SGOT) 62 U/L (15-37) Alanine Aminotransferase (ALT/SGPT) 35 U/L (14-59) Alkaline Phosphatase 63 U/L (46-116) Total Protein 8.1 g/dL (6.4-8.2) Albumin 2.2 g/dL (3.4-5.0) Albumin/Globulin Ratio 0.4 (1.0-1.7) Laboratory Tests Test 03/05/20 10:15 03/05/20 10:32 03/05/20 13:05 7/12/20 17:00 Sodium Level 125 mmol/L (136-145) Potassium Level 4.1 mmol/L (3.5-5.1) Chloride Level 92 mmol/L (98-107) Carbon Dioxide Level 19 mmol/L (21-32) Anion Gap 14 (6-14) Blood Urea Nitrogen 15 mg/dL (7-20) Creatinine 1.1 mg/dL (0.6-1.0) Estimated GFR (Cockcroft-Gault) 48.0 BUN/Creatinine Ratio 14 (6-20) Glucose Level 97 mg/dL (70-99) Calcium Level 8.6 mg/dL (8.5-10.1) Total Bilirubin 0.2 mg/dL (0.2-1.0) Aspartate Amino Transf (AST/SGOT) 73 U/L (15-37) Alanine Aminotransferase (ALT/SGPT) 32 U/L (14-59) Alkaline Phosphatase 71 U/L (46-116) Lactate Dehydrogenase 501 U/L (81-234) Total Protein 8.7 g/dL (6.4-8.2) Albumin 2.5 g/dL (3.4-5.0) Albumin/Globulin Ratio 0.4 (1.0-1.7) Procalcitonin 1.04 ng/mL (0.00-0.10) Troponin I Quantitative 0.029 ng/mL (0.000-0.055) White Blood Count 9.8 x10^3/uL (4.0-11.0) Red Blood Count 3.65 x10^6/uL (3.50-5.40) Hemoglobin 11.9 g/dL (12.0-15.5) Hematocrit 33.5 % (36.0-47.0) Mean Corpuscular Volume 92 fL (79-100) Mean Corpuscular Hemoglobin 33 pg (25-35) Mean Corpuscular Hemoglobin Concent 36 g/dL (31-37) Red Cell Distribution Width 14.5 % (11.5-14.5) Platelet Count 318 x10^3/uL (140-400) Neutrophils (%) (Auto) 94 % (31-73) Lymphocytes (%) (Auto) 4 % (24-48) Monocytes (%) (Auto) 2 % (0-9) Eosinophils (%) (Auto) 0 % (0-3) Basophils (%) (Auto) 0 % (0-3) Neutrophils # (Auto) 9.2 x10^3/uL (1.8-7.7) Lymphocytes # (Auto) 0.4 x10^3/uL (1.0-4.8) Monocytes # (Auto) 0.1 x10^3/uL (0.0-1.1) Eosinophils # (Auto) 0.0 x10^3/uL (0.0-0.7) Basophils # (Auto) 0.0 x10^3/uL (0.0-0.2) Segmented Neutrophils % 86 % (35-66) Band Neutrophils % 10 % (0-9) Lymphocytes % 3 % (24-48) Monocytes % 1 % (0-10) Toxic Granulation Slight Platelet Estimate Adequate (ADEQUATE) Prothrombin Time 14.1 SEC (11.7-14.0) Prothromb Time International Ratio 1.1 (0.8-1.1) Fibrinogen 844 mg/dL (200-440) D-Dimer (Honye) 2.82 ug/mlFEU (0.00-0.50) O2 Saturation 93 % (92-99) Arterial Blood pH 7.48 (7.35-7.45) Arterial Blood pCO2 at Patient Temp 30 mmHg (35-46) Arterial Blood pO2 at Patient Temp 67 mmHg (65-108) Arterial Blood HCO3 22 mmol/L (21-28) Arterial Blood Base Excess -1 mmol/L (-3-3) FiO2 100 Test 03/05/20 17:40 03/06/20 05:20 Troponin I Quantitative 0.036 ng/mL (0.000-0.055) White Blood Count 9.2 x10^3/uL (4.0-11.0) Red Blood Count 3.51 x10^6/uL (3.50-5.40) Hemoglobin 11.3 g/dL (12.0-15.5) Hematocrit 32.5 % (36.0-47.0) Mean Corpuscular Volume 93 fL (79-100) Mean Corpuscular Hemoglobin 32 pg (25-35) Mean Corpuscular Hemoglobin Concent 35 g/dL (31-37) Red Cell Distribution Width 14.7 % (11.5-14.5) Platelet Count 310 x10^3/uL (140-400) Neutrophils (%) (Auto) 91 % (31-73) Lymphocytes (%) (Auto) 6 % (24-48) Monocytes (%) (Auto) 3 % (0-9) Eosinophils (%) (Auto) 0 % (0-3) Basophils (%) (Auto) 0 % (0-3) Neutrophils # (Auto) 8.4 x10^3/uL (1.8-7.7) Lymphocytes # (Auto) 0.5 x10^3/uL (1.0-4.8) Monocytes # (Auto) 0.3 x10^3/uL (0.0-1.1) Eosinophils # (Auto) 0.0 x10^3/uL (0.0-0.7) Basophils # (Auto) 0.0 x10^3/uL (0.0-0.2) Sodium Level 132 mmol/L (136-145) Potassium Level 4.4 mmol/L (3.5-5.1) Chloride Level 97 mmol/L (98-107) Carbon Dioxide Level 22 mmol/L (21-32) Anion Gap 13 (6-14) Blood Urea Nitrogen 24 mg/dL (7-20) Creatinine 1.4 mg/dL (0.6-1.0) Estimated GFR (Cockcroft-Gault) 36.4 BUN/Creatinine Ratio 17 (6-20) Glucose Level 134 mg/dL (70-99) Calcium Level 8.4 mg/dL (8.5-10.1) Total Bilirubin 0.2 mg/dL (0.2-1.0) Aspartate Amino Transf (AST/SGOT) 62 U/L (15-37) Alanine Aminotransferase (ALT/SGPT) 35 U/L (14-59) Alkaline Phosphatase 63 U/L (46-116) Total Protein 8.1 g/dL (6.4-8.2) Albumin 2.2 g/dL (3.4-5.0) Albumin/Globulin Ratio 0.4 (1.0-1.7) Microbiology 03/05/20 Blood Culture - Preliminary, Resulted NO GROWTH AFTER 1 DAY Medications Current Medications Acetaminophen (Tylenol) 1,000 mg 1X ONCE PO Last administered on 03/05/20at 01:48; Start 03/05/20 at 01:00; Stop 03/05/20 at 01:01; Status DC Aspirin (Aspirin Chewable) 324 mg 1X ONCE PO Last administered on 03/05/20at 03:15; Start 03/05/20 at 02:45; Stop 03/05/20 at 02:46; Status DC Ceftriaxone Sodium (Rocephin) 1 gm 1X ONCE IVP Last administered on 03/05/20at 03:15; Start 03/05/20 at 02:45; Stop 03/05/20 at 02:46; Status DC Azithromycin 250 ml @ 250 mls/hr 1X ONCE IV Last administered on 03/05/20at 03:16; Start 03/05/20 at 02:45; Stop 03/05/20 at 03:44; Status DC Enoxaparin Sodium (Lovenox 40mg Syringe) 40 mg Q12HR SQ Last administered on 03/06/20at 08:21; Start 03/05/20 at 09:00 Acetaminophen (Tylenol) 500 mg PRN Q4HRS PRN PO pain/temp Last administered on 03/06/20at 01:37; Start 03/05/20 at 08:15 Amlodipine Besylate (Norvasc) 10 mg DAILY PO Last administered on 03/06/20at 08:21; Start 03/05/20 at 09:00 Duloxetine HCl (Cymbalta) 30 mg DAILY PO Last administered on 03/06/20at 08:21; Start 03/05/20 at 09:00 Guaifenesin (Robitussin Dm) 10 ml QID PO Last administered on 03/06/20at 08:20; Start 03/05/20 at 09:00 Acetaminophen/ Hydrocodone Bitart (Lortab 7.5/325) 1 tab PRN Q6HRS PRN PO MODERATE PAIN; Start 03/05/20 at 08:15 Risperidone (RisperDAL) 0.75 mg QHS PO ; Start 03/05/20 at 21:00 Timolol Maleate (Timoptic 0.25% Oph) 1 drop DAILY OU Last administered on 03/06/20at 08:20; Start 03/05/20 at 09:00 Olanzapine (ZyPREXA ZYDIS) 5 mg PRN BID PRN PO anxiety/agitation; Start 03/05/20 at 08:15 Ondansetron HCl (Zofran) 4 mg PRN Q6HRS PRN IVP NAUSEA/VOMITING; Start 03/05/20 at 08:30 Methylprednisolone Sodium Succinate (SOLU-Medrol 40MG VIAL) 40 mg Q12HR IV Last administered on 03/06/20at 08:21; Start 03/05/20 at 21:00 Methylprednisolone Sodium Succinate (SOLU-Medrol 40MG VIAL) 80 mg 1X ONCE IV ; Start 03/05/20 at 11:00; Stop 03/05/20 at 10:50; Status DC Methylprednisolone Sodium Succinate (SOLU-Medrol 125MG VIAL) 80 mg 1X ONCE IV Last administered on 03/05/20at 11:16; Start 03/05/20 at 11:00; Stop 03/05/20 at 11:01; Status DC Famotidine (Pepcid Vial) 20 mg QHS IVP Last administered on 03/05/20at 23:48; Start 03/05/20 at 21:00 Lorazepam (Ativan Inj) 0.5 mg PRN BID PRN IVP ANXIETY / AGITATION Last administered on 03/05/20at 16:25; Start 03/05/20 at 16:30 Morphine Sulfate (Morphine Sulfate) 4 mg PRN Q4HRS PRN IV PAIN Last administered on 03/05/20at 23:52; Start 03/05/20 at 17:30 Sodium Chloride 1,000 ml @ 75 mls/hr [id number] IV Last administered on 03/06/20at 09:30; Start 03/06/20 at 10:00 Amino Acids/ Glycerin/ Electrolytes 1,000 ml @ 80 mls/hr [id number] IV Last administered on 03/06/20at 09:30; Start 03/06/20 at 10:00 Active Scripts Active Reported Zofran (Ondansetron Hcl) 4 Mg Tablet 1 Tab PO Q6HRS Tylenol (Acetaminophen) 325 Mg Tablet 0 PO PRN Q4HRS Tussin Dm Cough & Chest Syrup (Guaifenesin/Dextromethorphan) 118 Ml Syrup 10 Ml PO QID 12 Days Timoptic 0.25% (Timolol Maleate) 5 Ml Drops 1 Drop LEFTEYE DAILY 30 Days Risperdal (Risperidone) 1 Mg Tablet 0.75 Tab PO QHS 30 Days Norvasc (Amlodipine Besylate) 10 Mg Tablet 10 Mg PO DAILY Hydrocodone-Apap 7.5-325 (Hydrocodone Bit/Acetaminophen) 1 Tab Tablet 1 Tab PO PRN Q6HRS PRN Myrbetriq (Mirabegron) 25 Mg Tab.er.24h 25 Mg PO DAILY Lasix (Furosemide) 20 Mg Tablet 1 Tab PO DAILY 30 Days Cymbalta (Duloxetine Hcl) 30 Mg Capsule.dr 1 Cap PO DAILY Vitals/I & O Vital Sign - Last 24 Hours 03/05/20 03/05/20 03/05/20 03/05/20 10:00 10:12 11:00 12:00 Temp 99.1 99.1 Pulse 104 101 110 114 Resp 32 34 32 B/P (MAP) 128/68 (88) 101/62 132/67 (88) 98/74 (82) Pulse Ox 97 97 94 O2 Delivery NonRebreather Mask NonRebreather Mask NonRebreather Mask O2 Flow Rate 15.0 15.0 15.0 03/05/20 03/05/20 03/05/20 03/05/20 12:00 13:00 13:24 14:00 Pulse 116 116 Resp 30 32 B/P (MAP) 162/72 (102) 160/75 (103) Pulse Ox 89 89 89 O2 Delivery Non-Rebreather NonRebreather Mask High Flow Nasal Cannula NonRebreather Mask O2 Flow Rate 15.0 15.0 15.0 03/05/20 03/05/20 03/05/20 03/05/20 15:00 16:00 16:00 16:27 Temp 99.6 99.6 Pulse 123 123 Resp 34 40 B/P (MAP) 152/75 (100) 158/74 (102) Pulse Ox 90 94 95 O2 Delivery NonRebreather Mask Non-Rebreather BiPAP/CPAP BiPAP/CPAP O2 Flow Rate 15.0 03/05/20 03/05/20 03/05/20 03/05/20 17:00 17:25 17:43 18:00 Pulse 123 124 Resp 40 38 B/P (MAP) 170/85 (113) 136/63 (87) Pulse Ox 93 95 92 O2 Delivery BiPAP/CPAP BiPAP/CPAP BiPAP/CPAP BiPAP/CPAP 03/05/20 03/05/20 03/05/20 03/05/20 18:06 19:00 20:00 20:00 Temp 98.9 98.9 Pulse 120 120 Resp 36 34 B/P (MAP) 138/70 (92) 148/65 (92) Pulse Ox 93 93 O2 Delivery BiPAP/CPAP BiPAP/CPAP Bi-pap BiPAP/CPAP 03/05/20 03/05/20 03/05/20 03/05/20 20:21 21:00 22:00 23:00 Pulse 116 114 116 Resp 34 36 29 B/P (MAP) 134/71 (92) 144/65 (91) 145/71 (95) Pulse Ox 93 21 93 94 O2 Delivery BiPAP/CPAP BiPAP/CPAP BiPAP/CPAP BiPAP/CPAP 03/05/20 03/05/20 03/06/20 03/06/20 23:10 23:52 00:01 00:01 Temp 101.4 101.4 Pulse 112 Resp 36 30 B/P (MAP) 128/73 (91) Pulse Ox 94 94 95 O2 Delivery BiPAP/CPAP BiPAP/CPAP BiPAP/CPAP Bi-pap O2 Flow Rate 15.0 03/06/20 03/06/20 03/06/20 03/06/20 00:22 01:00 02:00 02:27 Pulse 106 102 Resp 26 28 B/P (MAP) 121/57 (78) 129/57 (81) Pulse Ox 97 98 97 O2 Delivery BiPAP/CPAP BiPAP/CPAP BiPAP/CPAP BiPAP/CPAP O2 Flow Rate 15.0 03/06/20 03/06/20 03/06/20 03/06/20 03:00 04:00 04:00 05:00 Temp 99.1 99.1 Pulse 106 106 102 B/P (MAP) 120/59 (79) 119/63 (81) 119/63 (81) O2 Delivery BiPAP/CPAP Bi-pap BiPAP/CPAP 03/06/20 03/06/20 03/06/20 03/06/20 06:00 07:33 07:50 08:00 Pulse 102 103 Resp 54 B/P (MAP) 148/65 (92) 148/66 (93) Pulse Ox 98 97 O2 Delivery BiPAP/CPAP BiPAP/CPAP BiPAP/CPAP Bi-pap 03/06/20 03/06/20 03/06/20 08:19 08:21 09:03 Temp 99.4 99.4 Pulse 101 101 97 Resp 54 28 B/P (MAP) 162/69 (100) 162/69 114/58 (76) Pulse Ox 95 96 O2 Delivery BiPAP/CPAP BiPAP/CPAP Intake and Output 03/05/20 03/05/20 03/06/20 15:00 23:00 07:00 Intake Total 160 ml 0 ml Output Total 250 ml 50 ml Balance 160 ml -250 ml -50 ml Justicifation of Admission Dx: Justifications for Admission: Justification of Admission Dx: Yes Aspiration Pneumonia: Hypoxemia SAIRA SAHA MD Mar 06, 2020 09:49
[2020-03-06] MEDS: ZINC SULFATE 220 MG CAPSULE. PO SCH (10:20)
--- NOTE | 2020-03-06 12:18 | PDOC ---
Infectious Disease Note Vital Sign Vital Signs Vital Signs Date Time Temp Pulse Resp B/P (MAP) Pulse Ox O2 Delivery O2 Flow Rate FiO2 03/06/20 11:01 100 36 139/66 (90) 98 BiPAP/CPAP 03/06/20 08:19 99.4 99.4 03/06/20 00:22 15.0 Labs Lab Laboratory Tests Test 03/05/20 13:05 03/05/20 17:00 03/05/20 17:40 03/06/20 05:20 White Blood Count 9.8 x10^3/uL (4.0-11.0) 9.2 x10^3/uL (4.0-11.0) Red Blood Count 3.65 x10^6/uL (3.50-5.40) 3.51 x10^6/uL (3.50-5.40) Hemoglobin 11.9 g/dL (12.0-15.5) 11.3 g/dL (12.0-15.5) Hematocrit 33.5 % (36.0-47.0) 32.5 % (36.0-47.0) Mean Corpuscular Volume 92 fL (79-100) 93 fL (79-100) Mean Corpuscular Hemoglobin 33 pg (25-35) 32 pg (25-35) Mean Corpuscular Hemoglobin Concent 36 g/dL (31-37) 35 g/dL (31-37) Red Cell Distribution Width 14.5 % (11.5-14.5) 14.7 % (11.5-14.5) Platelet Count 318 x10^3/uL (140-400) 310 x10^3/uL (140-400) Neutrophils (%) (Auto) 94 % (31-73) 91 % (31-73) Lymphocytes (%) (Auto) 4 % (24-48) 6 % (24-48) Monocytes (%) (Auto) 2 % (0-9) 3 % (0-9) Eosinophils (%) (Auto) 0 % (0-3) 0 % (0-3) Basophils (%) (Auto) 0 % (0-3) 0 % (0-3) Neutrophils # (Auto) 9.2 x10^3/uL (1.8-7.7) 8.4 x10^3/uL (1.8-7.7) Lymphocytes # (Auto) 0.4 x10^3/uL (1.0-4.8) 0.5 x10^3/uL (1.0-4.8) Monocytes # (Auto) 0.1 x10^3/uL (0.0-1.1) 0.3 x10^3/uL (0.0-1.1) Eosinophils # (Auto) 0.0 x10^3/uL (0.0-0.7) 0.0 x10^3/uL (0.0-0.7) Basophils # (Auto) 0.0 x10^3/uL (0.0-0.2) 0.0 x10^3/uL (0.0-0.2) Segmented Neutrophils % 86 % (35-66) Band Neutrophils % 10 % (0-9) Lymphocytes % 3 % (24-48) Monocytes % 1 % (0-10) Toxic Granulation Slight Platelet Estimate Adequate (ADEQUATE) Prothrombin Time 14.1 SEC (11.7-14.0) Prothromb Time International Ratio 1.1 (0.8-1.1) Fibrinogen 844 mg/dL (200-440) D-Dimer (Honey) 2.82 ug/mlFEU (0.00-0.50) O2 Saturation 93 % (92-99) Arterial Blood pH 7.48 (7.35-7.45) Arterial Blood pCO2 at Patient Temp 30 mmHg (35-46) Arterial Blood pO2 at Patient Temp 67 mmHg (65-108) Arterial Blood HCO3 22 mmol/L (21-28) Arterial Blood Base Excess -1 mmol/L (-3-3) FiO2 100 Troponin I Quantitative 0.036 ng/mL (0.000-0.055) Sodium Level 132 mmol/L (136-145) Potassium Level 4.4 mmol/L (3.5-5.1) Chloride Level 97 mmol/L (98-107) Carbon Dioxide Level 22 mmol/L (21-32) Anion Gap 13 (6-14) Blood Urea Nitrogen 24 mg/dL (7-20) Creatinine 1.4 mg/dL (0.6-1.0) Estimated GFR (Cockcroft-Gault) 36.4 BUN/Creatinine Ratio 17 (6-20) Glucose Level 134 mg/dL (70-99) Calcium Level 8.4 mg/dL (8.5-10.1) Total Bilirubin 0.2 mg/dL (0.2-1.0) Aspartate Amino Transf (AST/SGOT) 62 U/L (15-37) Alanine Aminotransferase (ALT/SGPT) 35 U/L (14-59) Alkaline Phosphatase 63 U/L (46-116) Total Protein 8.1 g/dL (6.4-8.2) Albumin 2.2 g/dL (3.4-5.0) Albumin/Globulin Ratio 0.4 (1.0-1.7) Micro Microbiology 03/05/20 Blood Culture - Preliminary, Resulted NO GROWTH AFTER 1 DAY Objective Assessment pt seen, consult dictated Plan Plan of Care / CATHERINE BELTRE MD Mar 06, 2020 12:18
[2020-03-06 12:19] LABS: FIO2 ABG 80
--- NOTE | 2020-03-06 12:34 | CONS ---
DATE OF CONSULTATION: 03/06/2020 0REQUESTING PHYSICIAN: Dr. Coates. REASON FOR CONSULTATION: COVID-19 worsening. HISTORY OF PRESENT ILLNESS: This is a 79-year-old female who is a [facility] resident, wheelchair bound, who apparently was diagnosed with COVID-19 a few days ago. It is unclear whether it was week ago or 2 weeks ago as she was in a COVID unit, but then she was brought in because of shortness of breath. The patient on arrival to the ER was on 10 liters nonrebreather with oxygen saturation of 90s. The patient had fever. The patient has normal white count. Chest x-ray showed patient had right upper lobe and left perihilar infiltrate. The patient is right now on a BiPAP, requiring 60% FiO2. No nausea, vomiting, diarrhea noted. No chest pain. She says breathing is "okay." PAST MEDICAL HISTORY: Positive for obesity, gastroesophageal reflux disease, arthritis, hypertension, anemia, schizoaffective disorder, anxiety disorder. The patient is wheelchair bound. SOCIAL HISTORY: Negative for smoking, alcohol or illicit drug use. ALLERGIES: LISTED ALLERGIC TO HALOPERIDOL. REVIEW OF SYSTEMS: As per HPI, all other systems reviewed and are negative. CURRENT MEDICATIONS: Reviewed. PHYSICAL EXAMINATION: GENERAL: Awake female, not in any distress, on a BiPAP. VITAL SIGNS: T-max 101.4. HEENT: Both pupils are round and reacting. No conjunctival lesion, no lesion in the mouth. NECK: Supple, no JVP, no lymphadenopathy. LUNGS: Clear. HEART: S1, S2 regular. ABDOMEN: Benign. EXTREMITIES: No edema, cyanosis. SKIN: Unremarkable. NEUROLOGIC: The patient is alert, awake and appropriate. No focal neurologic deficit, although the communication is limited because of the BiPAP as well as some confusion and some memory gaps according to the RN. LABORATORY DATA: White count is normal. BUN and creatinine are 24 and 1.4. LDH is 501. Procalcitonin is 1.04. Lactic acid was normal. Blood cultures so far negative. Chest x-ray showed as I mentioned right upper lobe and left perihilar infiltrate. IMPRESSION: 1. COVID-19 positive recently. The date or timing is unclear from outside. 2. Fever. 3. Pulmonary infiltrate. 4. Renal insufficiency. 5. Obesity. 6. Chronic obstructive pulmonary disease. 7. Pulmonary infiltrate. RECOMMENDATIONS: I would continue supportive care. COVID-19 from here is pending. We will start Zyvox and Zosyn since the patient can have a healthcare facility associated pneumonia. Supportive care and we will continue to follow. Thank you very much, Dr. Coates, for giving me the opportunity to participate in this patient's care. CATHERINE BELTRE MD DR: KELLY/snehal JOB#: [id number] / [id number]
[2020-03-06] MEDS: PIPERACILLIN/TAZOBACTAM 3.375 GM in IV NORMAL SALINE 50ML 50 ML IV SCH ×2 (13:11→18:15)
[2020-03-06 13:27] LABS: C-REACTIVE PROTEIN 349.6 mg/L (0-3.3)
--- NOTE | 2020-03-06 13:59 | NUR ---
SS following for discharge planning. SS reviewed pt chart and discussed with pt RN. Pt is from [facility], ; fax [phone]. Pt COVID19 positive at facility. Pt currently on BIPAP. Pt on IV Zosyn, IV Zyvox, and PPN. SS will continue to follow for discharge planning.
[2020-03-06] MEDS ORDERED: DEXTROSE 50% 25 GM / 50ML DISP.SYRIN. IV ONE (17:48)
[2020-03-06] MEDS: LACTOBACILLUS RHAMNOSUS GG 1 CAPSULE. PO SCH (21:03)
[2020-03-06] MEDS: FAMOTIDINE 20 MG/2 ML VIAL IVP SCH (21:03)
[2020-03-06] MEDS: risperiDONE 0.25 MG TABLET. PO SCH (21:03)
[2020-03-07] VITALS (23 sets, daily range): BP systolic 93–151; BP diastolic 51–84
[2020-03-07] MEDS: PIPERACILLIN/TAZOBACTAM 3.375 GM in IV NORMAL SALINE 50ML 50 ML IV SCH ×5 (00:47→23:56)
--- NOTE | 2020-03-07 07:55 | EKG ---
[facility] [address] [place] [address] Test Date: 2020-03-05 Test Time: 00:11:47 Pat Name: EVERETT LEONE Department: Room: Gender: F Compensation/Benefits Specialist: : [id number] Requested By: KATIE AVILES Order Number: [id number] Reading MD: Measurements Intervals [place] Rate: 106 P: 24 NV: 114 QRS: 27 QRSD: 82 T: 38 QT: 320 QTc: 427 Interpretive Statements SINUS TACHYCARDIA OTHERWISE NORMAL ECG RI6.01 No previous ECG available for comparison
--- NOTE | 2020-03-07 08:06 | PDOC ---
Infectious Disease Note Subjective Subjective pt is cont to be on BiPap ROS ROS no n/v/d/sob Vital Sign Vital Signs Vital Signs Date Time Temp Pulse Resp B/P (MAP) Pulse Ox O2 Delivery O2 Flow Rate FiO2 03/07/20 03:00 100 27 126/69 (88) 96 BiPAP/CPAP 03/07/20 00:32 15.0 03/06/20 23:59 98.9 98.9 Physical Exam PHYSICAL EXAM GENERAL: Awake female, not in any distress, on a BiPAP. VITAL SIGNS: stable HEENT: Both pupils are round and reacting. No conjunctival lesion, no lesion in the mouth. NECK: Supple, no JVP, no lymphadenopathy. LUNGS: Clear. HEART: S1, S2 regular. ABDOMEN: Benign. EXTREMITIES: No edema, cyanosis. SKIN: Unremarkable. NEUROLOGIC: The patient is alert, awake and appropriate. No focal neurologic deficit, although the communication is limited because of the BiPAP as well as some confusion and some memory gaps according to the RN. Labs Micro Microbiology 03/05/20 Blood Culture - Preliminary, Resulted NO GROWTH AFTER 1 DAY Objective Assessment IMPRESSION: 1. COVID-19 positive 2. Fever. 3. Pulmonary infiltrate. 4. Renal insufficiency. 5. Obesity. 6. Chronic obstructive pulmonary disease. 7. Pulmonary infiltrate. Plan Plan of Care cont antibiotics cont supportive care CATHERINE BELTRE MD Mar 07, 2020 08:06
[2020-03-07 08:49] LABS: BASE EXCESS ABG -4 mmol/L (-3-3); HCO3 ABG 20 mmol/L (21-28); PCO2 ABG 33 mmHg (35-46); PO2 ABG 59 mmHg (65-108); SAT O2 ABG 89 % (92-99)
[2020-03-07] MEDS: TIMOLOL 0.25% OPHTH SOLUTION 5ML BOTTLE. OU SCH (09:07)
[2020-03-07] MEDS: DULoxetine HCL 30 MG CAPSULE.DR PO SCH (09:07)
[2020-03-07] MEDS: LACTOBACILLUS RHAMNOSUS GG 1 CAPSULE. PO SCH ×2 (09:07→21:00)
[2020-03-07] MEDS: ZINC SULFATE 220 MG CAPSULE. PO SCH (09:07)
--- NOTE | 2020-03-07 09:07 | NUR ---
see paper charting for normal saline and 0600 zosyn
[2020-03-07] MEDS: amLODIPine BESYLATE 10 MG TABLET PO SCH (09:08)
[2020-03-07] MEDS: methylPREDNISolone SOD SUCC PF 40 MG/ML VIAL. IV SCH ×2 (09:08→20:58)
--- NOTE | 2020-03-07 09:11 | PDOC ---
PULMONARY PROGRESS NOTES Subjective Patient with no significant respiratory distress on BiPAP Patient awake alert, she knows that she is at the hospital Vitals Vital Signs Date Time Temp Pulse Resp B/P (MAP) Pulse Ox O2 Delivery O2 Flow Rate FiO2 03/07/20 03:00 100 27 126/69 (88) 96 BiPAP/CPAP 03/07/20 00:32 15.0 03/06/20 23:59 98.9 98.9 Lungs: Clear Cardiovascular: S1, S2 Abdomen: Soft Neuro Exam: Alert Extremities: No Edema Skin: Warm Labs Laboratory Tests Test 03/05/20 10:15 03/05/20 10:32 03/05/20 13:05 03/05/20 17:00 Sodium Level 125 mmol/L (136-145) Potassium Level 4.1 mmol/L (3.5-5.1) Chloride Level 92 mmol/L (98-107) Carbon Dioxide Level 19 mmol/L (21-32) Anion Gap 14 (6-14) Blood Urea Nitrogen 15 mg/dL (7-20) Creatinine 1.1 mg/dL (0.6-1.0) Estimated GFR (Cockcroft-Gault) 48.0 BUN/Creatinine Ratio 14 (6-20) Glucose Level 97 mg/dL (70-99) Calcium Level 8.6 mg/dL (8.5-10.1) Total Bilirubin 0.2 mg/dL (0.2-1.0) Aspartate Amino Transf (AST/SGOT) 73 U/L (15-37) Alanine Aminotransferase (ALT/SGPT) 32 U/L (14-59) Alkaline Phosphatase 71 U/L (46-116) Lactate Dehydrogenase 501 U/L (81-234) Total Protein 8.7 g/dL (6.4-8.2) Albumin 2.5 g/dL (3.4-5.0) Albumin/Globulin Ratio 0.4 (1.0-1.7) Procalcitonin 1.04 ng/mL (0.00-0.10) Troponin I Quantitative 0.029 ng/mL (0.000-0.055) White Blood Count 9.8 x10^3/uL (4.0-11.0) Red Blood Count 3.65 x10^6/uL (3.50-5.40) Hemoglobin 11.9 g/dL (12.0-15.5) Hematocrit 33.5 % (36.0-47.0) Mean Corpuscular Volume 92 fL (79-100) Mean Corpuscular Hemoglobin 33 pg (25-35) Mean Corpuscular Hemoglobin Concent 36 g/dL (31-37) Red Cell Distribution Width 14.5 % (11.5-14.5) Platelet Count 318 x10^3/uL (140-400) Neutrophils (%) (Auto) 94 % (31-73) Lymphocytes (%) (Auto) 4 % (24-48) Monocytes (%) (Auto) 2 % (0-9) Eosinophils (%) (Auto) 0 % (0-3) Basophils (%) (Auto) 0 % (0-3) Neutrophils # (Auto) 9.2 x10^3/uL (1.8-7.7) Lymphocytes # (Auto) 0.4 x10^3/uL (1.0-4.8) Monocytes # (Auto) 0.1 x10^3/uL (0.0-1.1) Eosinophils # (Auto) 0.0 x10^3/uL (0.0-0.7) Basophils # (Auto) 0.0 x10^3/uL (0.0-0.2) Segmented Neutrophils % 86 % (35-66) Band Neutrophils % 10 % (0-9) Lymphocytes % 3 % (24-48) Monocytes % 1 % (0-10) Toxic Granulation Slight Platelet Estimate Adequate (ADEQUATE) Prothrombin Time 14.1 SEC (11.7-14.0) Prothromb Time International Ratio 1.1 (0.8-1.1) Fibrinogen 844 mg/dL (200-440) D-Dimer (Honey) 2.82 ug/mlFEU (0.00-0.50) O2 Saturation 93 % (92-99) Arterial Blood pH 7.48 (7.35-7.45) Arterial Blood pCO2 at Patient Temp 30 mmHg (35-46) Arterial Blood pO2 at Patient Temp 67 mmHg (65-108) Arterial Blood HCO3 22 mmol/L (21-28) Arterial Blood Base Excess -1 mmol/L (-3-3) FiO2 100 Test 03/05/20 17:40 03/06/20 05:20 03/06/20 07:50 Troponin I Quantitative 0.036 ng/mL (0.000-0.055) White Blood Count 9.2 x10^3/uL (4.0-11.0) Red Blood Count 3.51 x10^6/uL (3.50-5.40) Hemoglobin 11.3 g/dL (12.0-15.5) Hematocrit 32.5 % (36.0-47.0) Mean Corpuscular Volume 93 fL (79-100) Mean Corpuscular Hemoglobin 32 pg (25-35) Mean Corpuscular Hemoglobin Concent 35 g/dL (31-37) Red Cell Distribution Width 14.7 % (11.5-14.5) Platelet Count 310 x10^3/uL (140-400) Neutrophils (%) (Auto) 91 % (31-73) Lymphocytes (%) (Auto) 6 % (24-48) Monocytes (%) (Auto) 3 % (0-9) Eosinophils (%) (Auto) 0 % (0-3) Basophils (%) (Auto) 0 % (0-3) Neutrophils # (Auto) 8.4 x10^3/uL (1.8-7.7) Lymphocytes # (Auto) 0.5 x10^3/uL (1.0-4.8) Monocytes # (Auto) 0.3 x10^3/uL (0.0-1.1) Eosinophils # (Auto) 0.0 x10^3/uL (0.0-0.7) Basophils # (Auto) 0.0 x10^3/uL (0.0-0.2) Sodium Level 132 mmol/L (136-145) Potassium Level 4.4 mmol/L (3.5-5.1) Chloride Level 97 mmol/L (98-107) Carbon Dioxide Level 22 mmol/L (21-32) Anion Gap 13 (6-14) Blood Urea Nitrogen 24 mg/dL (7-20) Creatinine 1.4 mg/dL (0.6-1.0) Estimated GFR (Cockcroft-Gault) 36.4 BUN/Creatinine Ratio 17 (6-20) Glucose Level 134 mg/dL (70-99) Calcium Level 8.4 mg/dL (8.5-10.1) Ferritin 1999 ng/mL (8-252) Total Bilirubin 0.2 mg/dL (0.2-1.0) Aspartate Amino Transf (AST/SGOT) 62 U/L (15-37) Alanine Aminotransferase (ALT/SGPT) 35 U/L (14-59) Alkaline Phosphatase 63 U/L (46-116) C-Reactive Protein, Quantitative 349.6 mg/L (0-3.3) Total Protein 8.1 g/dL (6.4-8.2) Albumin 2.2 g/dL (3.4-5.0) Albumin/Globulin Ratio 0.4 (1.0-1.7) O2 Saturation 95 % (92-99) Arterial Blood pH 7.35 (7.35-7.45) Arterial Blood pCO2 at Patient Temp 39 mmHg (35-46) Arterial Blood pO2 at Patient Temp 84 mmHg (65-108) Arterial Blood HCO3 21 mmol/L (21-28) Arterial Blood Base Excess -4 mmol/L (-3-3) FiO2 80 Medications Active Scripts Medications Dose Route/Sig Max Daily Dose Days Date Category Zofran (Ondansetron Hcl) 4 Mg Tablet 1 Tab PO Q6HRS 03/05/20 Reported Tylenol (Acetaminophen) 325 Mg Tablet 0 PO PRN Q4HRS 03/05/20 Reported Tussin Dm Cough & Chest Syrup (Guaifenesin/Dextromethorphan) 118 Ml Syrup 10 Ml PO QID 12 03/05/20 Reported Timoptic 0.25% (Timolol Maleate) 5 Ml Drops 1 Drop LEFTEYE DAILY 30 03/05/20 Reported Risperdal (Risperidone) 1 Mg Tablet 0.75 Tab PO QHS 30 03/05/20 Reported Norvasc (Amlodipine Besylate) 10 Mg Tablet 10 Mg PO DAILY 03/05/20 Reported Hydrocodone-Apap 7.5-325 (Hydrocodone Bit/Acetaminophen) 1 Tab Tablet 1 Tab PO PRN Q6HRS PRN 03/05/20 Reported Myrbetriq (Mirabegron) 25 Mg Tab.er.24h 25 Mg PO DAILY 03/05/20 Reported Lasix (Furosemide) 20 Mg Tablet 1 Tab PO DAILY 30 03/05/20 Reported Cymbalta (Duloxetine Hcl) 30 Mg Capsule.dr 1 Cap PO DAILY 03/05/20 Reported Impression . IMPRESSION: 1. Acute hypoxemic respiratory failure secondary to pneumonia, recent SARS-CoV-2 positive 2. Abnormal chest x-ray. Possible viral pneumonia, bacterial pneumonia 3. Pneumonia. 4. Elevated troponin/non-ST segment elevation MA 5. Acute kidney injury. 6. Hyponatremia. 7. Fever 8. COVID-19 viral pneumonia Plan . Will continue current support Appreciate ID support Continue BiPAP Empiric antibiotics per ID Bronchodilators DVT GI prophylaxis Steroids Case discussed with RN and RT Total cumulative critical care time of 30 minutes reviewing data, labs, chest x- ray, and formulating a plan. ALLISON CARRERO MD Mar 07, 2020 09:11
[2020-03-07] MEDS: ENOXAPARIN 40 MG/0.4 ML SYRINGE. SQ SCH ×2 (09:12→20:56)
[2020-03-07 09:15] LABS: FIO2 ABG 60%
[2020-03-07] MEDS: ACETAMINOPHEN 325 MG TABLET. PO PRN (09:36)
[2020-03-07] MEDS: AMINO AC 3%/ELECTROLYTE/GLYCER 1,000 ML IV SCH ×2 (11:53→23:57)
[2020-03-07] MEDS: IV NORMAL SALINE 1000ML BAG 1,000 ML IV SCH ×2 (11:53→23:56)
--- NOTE | 2020-03-07 11:54 | NUR ---
full bag of normal saline at this time so no need for a new bag
--- NOTE | 2020-03-07 12:19 | NUR ---
SS following for discharge planning. SS reviewed pt chart. Pt is LTC resident from [facility], ; fax [phone]. Pt COVID19 positive at facility. Pt currently on vapotherm. Pt on IV Zosyn, IV Zyvox, and PPN. SS will continue to follow for discharge planning
[2020-03-07] MEDS: STERILE WATER for RESP 1,000 ML BAG. INH PRN ×2 (13:31→17:37)
--- NOTE | 2020-03-07 13:46 | PDOC ---
PROGRESS NOTES Chief Complaint Chief Complaint A/P: Acute hypoxic respiratory failure - likely related to COVID 19 pneumonia. Vapotherm equipment unavailable, will use BIPAP 07/06 with airborne precautions Sepsis - related to above, will cont antibiotics, fluids Pneumonia - Right upper lobe and left middle lobe, on antibiotics, likely gram negative, but also possibly viral from COVID 19. 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 Severe protein calorie malnutrition - related to COVID 19 pneumonia Transaminitis - AST elevation possibly related to COVID syndrome, will monitor, check coag profile, LDH Anxiety - will give zyprexa zydis and prn BID IV ativan, will watch for sedation or confusion with low threshold of stopping benzos Arthritis - has some bilateral LE contractures GERD - PPI Hypertension - cont mes Anemia Schizoaffective disorder - cont meds FEN - GI soft diet, NSS and procalamine PPX - lovenox BID FULL CODE Dispo - ICU for respiratory failure 2/ COVID 19 CC time 78 minutes History of Present Illness History of Present Illness Ms. Leija is a 79yo F SNF resident of [facility] w/ PMHx Anxiety, Arthritis, GERD, Glaucoma, Hypertension, anemia, schizoaffective disorder who presents to ED via EMS from [facility] with decreased oxygen saturation. Patient was on 4 L nasal cannula with an oxygen saturation of 73%. In ED she was on 10 L nonrebreather with oxygen saturations in the 90s. Febrile with temperature of 101.4F. Was recently diagnosed with SARS-CoV-2 (COVID19) at [facility], lab report not available, unclear what day she was tested positive, though there is report of a small cluster of cases from that facility. Patient has no complaints, but when asked about shortness of breath and cough she says yes. She denies any headache chest pain. Visibly with rapid shallow breathing. Somewhat difficult to understand CXR with right upper lobe and left perihilar infiltrates. ABG 7.42/30 8/65 on 10 L. WBC 7.8, Hb 10.4, platelets 270, NA 128, K4.4, BUN 15, CR 1.2, glucose 104, calcium 8.2, albumin 2.4, bili 0.3, AST elevated at 70, ALT 39, alk phos 53, BNP 899, troponin 0 0.098, lactate normal. Admitted to ICU COVID unit for further care. Vitals Vitals Vital Signs Date Time Temp Pulse Resp B/P (MAP) Pulse Ox O2 Delivery O2 Flow Rate FiO2 03/07/20 13:00 102 51 127/56 (79) 91 vapotherm 40.0 03/07/20 12:00 99.2 99.2 Physical Exam Physical Exam GENERAL: Awake female, not in any distress, on a BiPAP. VITAL SIGNS: stable HEENT: Both pupils are round and reacting. No conjunctival lesion, no lesion in the mouth. NECK: Supple, no JVP, no lymphadenopathy. LUNGS: Clear. HEART: S1, S2 regular. ABDOMEN: Benign. EXTREMITIES: No edema, cyanosis. SKIN: Unremarkable. NEUROLOGIC: The patient is alert, awake and appropriate. No focal neurologic deficit, although the communication is limited because of the BiPAP as well as some confusion and some memory gaps according to the RN. General: Alert, Cooperative, severe distress Heart: Regular rate, Normal S1, Normal S2 Lungs: Clear Extremities: No clubbing, No cyanosis, No edema, Normal pulses, No tenderness/swelling Skin: No rashes, No breakdown, No significant lesion Labs LABS Laboratory Tests Test 03/07/20 08:38 O2 Saturation 89 % (92-99) Arterial Blood pH 7.40 (7.35-7.45) Arterial Blood pCO2 at Patient Temp 33 mmHg (35-46) Arterial Blood pO2 at Patient Temp 59 mmHg (65-108) Arterial Blood HCO3 20 mmol/L (21-28) Arterial Blood Base Excess -4 mmol/L (-3-3) FiO2 60% Assessment and Plan Assessmemt and Plan Problems Medical Problems: (1) COVID-19 Status: Acute (2) Elevated brain natriuretic peptide (BNP) level Status: Acute (3) Elevated troponin Status: Acute (4) Hypoxia Status: Acute (5) Pneumonia Status: Acute Comment Review of Relevant I have reviewed the following items lena (where applicable) has been applied. Labs Laboratory Tests Test 03/05/20 17:00 03/05/20 17:40 03/06/20 05:20 03/06/20 07:50 O2 Saturation 93 % (92-99) 95 % (92-99) Arterial Blood pH 7.48 (7.35-7.45) 7.35 (7.35-7.45) Arterial Blood pCO2 at Patient Temp 30 mmHg (35-46) 39 mmHg (35-46) Arterial Blood pO2 at Patient Temp 67 mmHg (65-108) 84 mmHg (65-108) Arterial Blood HCO3 22 mmol/L (21-28) 21 mmol/L (21-28) Arterial Blood Base Excess -1 mmol/L (-3-3) -4 mmol/L (-3-3) FiO2 100 80 Troponin I Quantitative 0.036 ng/mL (0.000-0.055) White Blood Count 9.2 x10^3/uL (4.0-11.0) Red Blood Count 3.51 x10^6/uL (3.50-5.40) Hemoglobin 11.3 g/dL (12.0-15.5) Hematocrit 32.5 % (36.0-47.0) Mean Corpuscular Volume 93 fL (79-100) Mean Corpuscular Hemoglobin 32 pg (25-35) Mean Corpuscular Hemoglobin Concent 35 g/dL (31-37) Red Cell Distribution Width 14.7 % (11.5-14.5) Platelet Count 310 x10^3/uL (140-400) Neutrophils (%) (Auto) 91 % (31-73) Lymphocytes (%) (Auto) 6 % (24-48) Monocytes (%) (Auto) 3 % (0-9) Eosinophils (%) (Auto) 0 % (0-3) Basophils (%) (Auto) 0 % (0-3) Neutrophils # (Auto) 8.4 x10^3/uL (1.8-7.7) Lymphocytes # (Auto) 0.5 x10^3/uL (1.0-4.8) Monocytes # (Auto) 0.3 x10^3/uL (0.0-1.1) Eosinophils # (Auto) 0.0 x10^3/uL (0.0-0.7) Basophils # (Auto) 0.0 x10^3/uL (0.0-0.2) Sodium Level 132 mmol/L (136-145) Potassium Level 4.4 mmol/L (3.5-5.1) Chloride Level 97 mmol/L (98-107) Carbon Dioxide Level 22 mmol/L (21-32) Anion Gap 13 (6-14) Blood Urea Nitrogen 24 mg/dL (7-20) Creatinine 1.4 mg/dL (0.6-1.0) Estimated GFR (Cockcroft-Gault) 36.4 BUN/Creatinine Ratio 17 (6-20) Glucose Level 134 mg/dL (70-99) Calcium Level 8.4 mg/dL (8.5-10.1) Ferritin 1999 ng/mL (8-252) Total Bilirubin 0.2 mg/dL (0.2-1.0) Aspartate Amino Transf (AST/SGOT) 62 U/L (15-37) Alanine Aminotransferase (ALT/SGPT) 35 U/L (14-59) Alkaline Phosphatase 63 U/L (46-116) C-Reactive Protein, Quantitative 349.6 mg/L (0-3.3) Total Protein 8.1 g/dL (6.4-8.2) Albumin 2.2 g/dL (3.4-5.0) Albumin/Globulin Ratio 0.4 (1.0-1.7) Test 03/07/20 08:38 O2 Saturation 89 % (92-99) Arterial Blood pH 7.40 (7.35-7.45) Arterial Blood pCO2 at Patient Temp 33 mmHg (35-46) Arterial Blood pO2 at Patient Temp 59 mmHg (65-108) Arterial Blood HCO3 20 mmol/L (21-28) Arterial Blood Base Excess -4 mmol/L (-3-3) FiO2 60% Laboratory Tests Test 03/07/20 08:38 O2 Saturation 89 % (92-99) Arterial Blood pH 7.40 (7.35-7.45) Arterial Blood pCO2 at Patient Temp 33 mmHg (35-46) Arterial Blood pO2 at Patient Temp 59 mmHg (65-108) Arterial Blood HCO3 20 mmol/L (21-28) Arterial Blood Base Excess -4 mmol/L (-3-3) FiO2 60% Microbiology 03/05/20 Blood Culture - Preliminary, Resulted NO GROWTH AFTER 2 DAYS Medications Current Medications Acetaminophen (Tylenol) 1,000 mg 1X ONCE PO Last administered on 03/05/20at 01:48; Start 03/05/20 at 01:00; Stop 03/05/20 at 01:01; Status DC Aspirin (Aspirin Chewable) 324 mg 1X ONCE PO Last administered on 03/05/20 03:15; Start 03/05/20 at 02:45; Stop 03/05/20 at 02:46; Status DC Ceftriaxone Sodium (Rocephin) 1 gm 1X ONCE IVP Last administered on 03/05/20at 03:15; Start 03/05/20 at 02:45; Stop 03/05/20 at 02:46; Status DC Azithromycin 250 ml @ 250 mls/hr 1X ONCE IV Last administered on 03/05/20at 03:16; Start 03/05/20 at 02:45; Stop 03/05/20 at 03:44; Status DC Enoxaparin Sodium (Lovenox 40mg Syringe) 40 mg Q12HR SQ Last administered on 03/07/20 09:12; Start 03/05/20 at 09:00 Acetaminophen (Tylenol) 500 mg PRN Q4HRS PRN PO pain/temp Last administered on 03/07/20at 09:36; Start 03/05/20 at 08:15 Amlodipine Besylate (Norvasc) 10 mg DAILY PO Last administered on 03/07/20 09:08; Start 03/05/20 at 09:00 Duloxetine HCl (Cymbalta) 30 mg DAILY PO Last administered on 03/07/20 09:07; Start 03/05/20 at 09:00 Guaifenesin (Robitussin Dm) 10 ml QID PO Last administered on 03/06/20at 08:20; Start 03/05/20 at 09:00; Stop 03/06/20 at 17:39; Status DC Acetaminophen/ Hydrocodone Bitart (Lortab 7.5/325) 1 tab PRN Q6HRS PRN PO MODERATE PAIN; Start 03/05/20 at 08:15 Risperidone (RisperDAL) 0.75 mg QHS PO Last administered on 03/06/20at 21:03; Start 03/05/20 at 21:00 Timolol Maleate (Timoptic 0.25% Oph) 1 drop DAILY OU Last administered on 03/07/20 09:07; Start 03/05/20 at 09:00 Olanzapine (ZyPREXA ZYDIS) 5 mg PRN BID PRN PO anxiety/agitation; Start 03/05/20 at 08:15 Ondansetron HCl (Zofran) 4 mg PRN Q6HRS PRN IVP NAUSEA/VOMITING; Start 03/05/20 at 08:30 Methylprednisolone Sodium Succinate (SOLU-Medrol 40MG VIAL) 40 mg Q12HR IV Last administered on 03/07/20at 09:08; Start 03/05/20 at 21:00 Methylprednisolone Sodium Succinate (SOLU-Medrol 40MG VIAL) 80 mg 1X ONCE IV ; Start 03/05/20 at 11:00; Stop 03/05/20 at 10:50; Status DC Methylprednisolone Sodium Succinate (SOLU-Medrol 125MG VIAL) 80 mg 1X ONCE IV Last administered on 03/05/20at 11:16; Start 03/05/20 at 11:00; Stop 03/05/20 at 11:01; Status DC Famotidine (Pepcid Vial) 20 mg QHS IVP Last administered on 03/06/20at 21:03; Start 03/05/20 at 21:00 Lorazepam (Ativan Inj) 0.5 mg PRN BID PRN IVP ANXIETY / AGITATION Last administered on 03/07/20at 03:42; Start 03/05/20 at 16:30 Morphine Sulfate (Morphine Sulfate) 4 mg PRN Q4HRS PRN IV PAIN Last administered on 03/05/20at 23:52; Start 03/05/20 at 17:30 Sodium Chloride 1,000 ml @ 75 mls/hr [id number] IV Last administered on 03/06/20at 09:30; Start 03/06/20 at 10:00 Amino Acids/ Glycerin/ Electrolytes 1,000 ml @ 80 mls/hr [id number] IV Last administered on 03/07/20at 11:53; Start 03/06/20 at 10:00 Zinc Sulfate (Orazinc) 220 mg DAILY PO Last administered on 03/07/20at 09:07; Start 03/06/20 at 10:00 Linezolid/Dextrose 300 ml @ 300 mls/hr Q12HR IV Last administered on 03/07/20at 09:08; Start 03/06/20 at 13:00 Piperacillin Sod/ Tazobactam Sod 3.375 gm/Sodium Chloride 50 ml @ 100 mls/hr Q6HRS IV Last administered on 03/07/20at 11:53; Start 03/06/20 at 12:30 Lactobacillus Rhamnosus (Culturelle) 1 cap BID PO Last administered on 03/07/20at 09:07; Start 03/06/20 at 21:00 Dextrose (Dextrose 50%-Water Syringe) 25 gm STK-MED ONCE IV ; Start 03/06/20 at 17:48; Stop 03/06/20 at 17:48; Status DC Sterile Water (WATER for RESP) 1,000 ml CONT PRN INH VIA VAPOTHERM DEVICE Last administered on 03/07/20at 13:31; Start 03/07/20 at 13:30 Active Scripts Active Reported Zofran (Ondansetron Hcl) 4 Mg Tablet 1 Tab PO Q6HRS Tylenol (Acetaminophen) 325 Mg Tablet 0 PO PRN Q4HRS Tussin Dm Cough & Chest Syrup (Guaifenesin/Dextromethorphan) 118 Ml Syrup 10 Ml PO QID 12 Days Timoptic 0.25% (Timolol Maleate) 5 Ml Drops 1 Drop LEFTEYE DAILY 30 Days Risperdal (Risperidone) 1 Mg Tablet 0.75 Tab PO QHS 30 Days Norvasc (Amlodipine Besylate) 10 Mg Tablet 10 Mg PO DAILY Hydrocodone-Apap 7.5-325 (Hydrocodone Bit/Acetaminophen) 1 Tab Tablet 1 Tab PO PRN Q6HRS PRN Myrbetriq (Mirabegron) 25 Mg Tab.er.24h 25 Mg PO DAILY Lasix (Furosemide) 20 Mg Tablet 1 Tab PO DAILY 30 Days Cymbalta (Duloxetine Hcl) 30 Mg Capsule. 1 Cap PO DAILY Vitals/I & O Vital Sign - Last 24 Hours 03/06/20 03/06/20 03/06/20 03/06/20 14:37 15:00 15:46 16:01 Pulse 100 98 Resp 28 40 B/P (MAP) 119/71 (87) 137/74 (95) Pulse Ox 97 96 96 O2 Delivery BiPAP/CPAP BiPAP/CPAP BiPAP/CPAP Bi-pap 03/06/20 03/06/20 03/06/20 03/06/20 16:01 16:35 17:29 18:13 Temp 99.7 99.7 Pulse 98 102 100 Resp 36 36 25 B/P (MAP) 141/71 (94) 143/85 (104) 102/76 (85) Pulse Ox 98 97 98 O2 Delivery BiPAP/CPAP BiPAP/CPAP BiPAP/CPAP O2 Flow Rate 15.0 03/06/20 03/06/20 03/06/20 03/06/20 18:20 19:00 20:00 20:00 Pulse 98 Resp 22 B/P (MAP) 133/42 (72) Pulse Ox 97 98 O2 Delivery BiPAP/CPAP BiPAP/CPAP Bi-pap O2 Flow Rate 15.0 03/06/20 03/06/20 03/06/20 03/06/20 20:00 20:07 21:00 22:00 Temp 99.1 99.1 Pulse 103 106 105 Resp 27 22 B/P (MAP) 119/82 (94) 155/73 (100) 148/65 (92) Pulse Ox 98 99 98 98 O2 Delivery BiPAP/CPAP BiPAP/CPAP BiPAP/CPAP BiPAP/CPAP 03/06/20 03/06/20 03/06/20 03/06/20 22:55 23:00 23:59 23:59 Temp 98.9 98.9 Pulse 108 103 Resp 27 B/P (MAP) 142/77 (98) 142/79 (100) Pulse Ox 93 95 98 O2 Delivery BiPAP/CPAP BiPAP/CPAP Bi-pap BiPAP/CPAP 03/07/20 03/07/20 03/07/20 03/07/20 00:32 01:00 02:00 03:00 Pulse 110 99 100 Resp 27 B/P (MAP) 136/75 (95) 93/51 (65) 126/69 (88) Pulse Ox 93 95 96 O2 Delivery BiPAP/CPAP BiPAP/CPAP BiPAP/CPAP O2 Flow Rate 15.0 03/07/20 03/07/20 03/07/20 03/07/20 07:00 07:20 08:00 08:00 Pulse 114 116 Resp 46 54 B/P (MAP) 125/63 (83) 131/62 (85) Pulse Ox 92 94 93 O2 Delivery BiPAP/CPAP BiPAP/CPAP BiPAP/CPAP Bi-pap 03/07/20 03/07/20 03/07/20 03/07/20 09:00 09:08 09:45 10:00 Temp 101.5 101.5 Pulse 126 116 112 Resp 51 42 B/P (MAP) 151/84 (106) 131/62 112/60 (77) Pulse Ox 90 91 91 O2 Delivery BiPAP/CPAP Vapotherm vapotherm O2 Flow Rate 40.0 03/07/20 03/07/20 03/07/20 03/07/20 11:00 12:00 12:00 13:00 Temp 99.2 99.2 Pulse 116 114 102 Resp 48 53 51 B/P (MAP) 127/60 (82) 131/60 (83) 127/56 (79) Pulse Ox 90 87 91 O2 Delivery vapotherm vapotherm vapotherm O2 Flow Rate 40.0 40.0 40.0 l Intake and Output 03/06/20 03/06/20 03/07/20 15:00 23:00 07:00 Intake Total 750 ml 1208 ml 1510 ml Output Total 255 ml 350 ml 250 ml Balance 495 ml 858 ml 1260 ml Justicifation of Admission Dx: Justifications for Admission: Justification of Admission Dx: Yes Aspiration Pneumonia: Hypoxemia RICK STARR MD Mar 07, 2020 13:46
[2020-03-07] MEDS: risperiDONE 0.25 MG TABLET. PO SCH (20:57)
[2020-03-07] MEDS: FAMOTIDINE 20 MG/2 ML VIAL IVP SCH (20:57)
[2020-03-08] VITALS (21 sets, daily range): BP systolic 90–168; BP diastolic 47–96
[2020-03-08 04:46] LABS: BASE EXCESS ABG -2 mmol/L (-3-3); FIO2 ABG 100; HCO3 ABG 21 mmol/L (21-28); PCO2 ABG 34 mmHg (35-46); PO2 ABG 77 mmHg (65-108); SAT O2 ABG 95 % (92-99)
[2020-03-08] MEDS: PIPERACILLIN/TAZOBACTAM 3.375 GM in IV NORMAL SALINE 50ML 50 ML IV SCH ×4 (05:46→23:36)
--- NOTE | 2020-03-08 07:53 | PDOC ---
Infectious Disease Note Subjective Subjective pt is cont to be on BiPap ROS ROS no n/v/d/fever Vital Sign Vital Signs Vital Signs Date Time Temp Pulse Resp B/P (MAP) Pulse Ox O2 Delivery O2 Flow Rate FiO2 03/08/20 07:00 113 45 168/74 (105) 95 BiPAP/CPAP 03/08/20 04:00 98.3 98.3 03/07/20 19:33 40.0 Physical Exam PHYSICAL EXAM GENERAL: Awake female, on a BiPAP. VITAL SIGNS: stable HEENT: Both pupils are round and reacting. No conjunctival lesion, no lesion in the mouth. NECK: Supple, no JVP, no lymphadenopathy. LUNGS: Clear. HEART: S1, S2 regular. ABDOMEN: Benign. EXTREMITIES: No edema, cyanosis. SKIN: Unremarkable. NEUROLOGIC: The patient is alert, awake and appropriate. No focal neurologic deficit, although the communication is limited because of the BiPAP as well as some confusion and some memory gaps according to the RN. Labs Lab Laboratory Tests Test 03/07/20 08:38 03/08/20 04:33 O2 Saturation 89 % (92-99) 95 % (92-99) Arterial Blood pH 7.40 (7.35-7.45) 7.42 (7.35-7.45) Arterial Blood pCO2 at Patient Temp 33 mmHg (35-46) 34 mmHg (35-46) Arterial Blood pO2 at Patient Temp 59 mmHg (65-108) 77 mmHg (65-108) Arterial Blood HCO3 20 mmol/L (21-28) 21 mmol/L (21-28) Arterial Blood Base Excess -4 mmol/L (-3-3) -2 mmol/L (-3-3) FiO2 60% 100 Micro Microbiology 03/05/20 Blood Culture - Preliminary, Resulted NO GROWTH AFTER 1 DAY Objective Assessment IMPRESSION: 1. COVID-19 positive 2. Fever. 3. Pulmonary infiltrate. 4. Renal insufficiency. 5. Obesity. 6. Chronic obstructive pulmonary disease. 7. Pulmonary infiltrate. Plan Plan of Care cont antibiotics cont supportive care CATHERINE BELTRE MD Mar 08, 2020 07:53
[2020-03-08] MEDS: ENOXAPARIN 40 MG/0.4 ML SYRINGE. SQ SCH ×2 (08:03→21:23)
[2020-03-08] MEDS: LACTOBACILLUS RHAMNOSUS GG 1 CAPSULE. PO SCH ×3 (08:04→21:00)
[2020-03-08] MEDS: ZINC SULFATE 220 MG CAPSULE. PO SCH ×2 (08:04→09:00)
[2020-03-08] MEDS: methylPREDNISolone SOD SUCC PF 40 MG/ML VIAL. IV SCH ×2 (08:04→21:22)
[2020-03-08] MEDS: amLODIPine BESYLATE 10 MG TABLET PO SCH ×2 (08:05→09:00)
[2020-03-08] MEDS: DULoxetine HCL 30 MG CAPSULE.DR PO SCH ×2 (08:05→09:00)
[2020-03-08] MEDS: TIMOLOL 0.25% OPHTH SOLUTION 5ML BOTTLE. OU SCH (09:10)
--- NOTE | 2020-03-08 09:26 | PDOC ---
PULMONARY PROGRESS NOTES Subjective Patient is struggling to breathe today, despite the use of BiPAP. She is not awake alert follows no commands Vitals Vital Signs Date Time Temp Pulse Resp B/P (MAP) Pulse Ox O2 Delivery O2 Flow Rate FiO2 03/08/20 09:00 115 50 158/65 (96) 93 vapotherm 40.0 03/08/20 08:00 100.5 100.5 Lungs: Clear Cardiovascular: S1, S2 Abdomen: Soft Extremities: No Edema Skin: Warm Labs Laboratory Tests Test 03/07/20 08:38 03/08/20 04:33 O2 Saturation 89 % (92-99) 95 % (92-99) Arterial Blood pH 7.40 (7.35-7.45) 7.42 (7.35-7.45) Arterial Blood pCO2 at Patient Temp 33 mmHg (35-46) 34 mmHg (35-46) Arterial Blood pO2 at Patient Temp 59 mmHg (65-108) 77 mmHg (65-108) Arterial Blood HCO3 20 mmol/L (21-28) 21 mmol/L (21-28) Arterial Blood Base Excess -4 mmol/L (-3-3) -2 mmol/L (-3-3) FiO2 60% 100 Laboratory Tests Test 03/08/20 04:33 O2 Saturation 95 % (92-99) Arterial Blood pH 7.42 (7.35-7.45) Arterial Blood pCO2 at Patient Temp 34 mmHg (35-46) Arterial Blood pO2 at Patient Temp 77 mmHg (65-108) Arterial Blood HCO3 21 mmol/L (21-28) Arterial Blood Base Excess -2 mmol/L (-3-3) FiO2 100 Medications Active Scripts Medications Dose Route/Sig Max Daily Dose Days Date Category Zofran (Ondansetron Hcl) 4 Mg Tablet 1 Tab PO Q6HRS 03/05/20 Reported Tylenol (Acetaminophen) 325 Mg Tablet 0 PO PRN Q4HRS 03/05/20 Reported Tussin Dm Cough & Chest Syrup (Guaifenesin/Dextromethorphan) 118 Ml Syrup 10 Ml PO QID 12 03/05/20 Reported Timoptic 0.25% (Timolol Maleate) 5 Ml Drops 1 Drop LEFTEYE DAILY 30 03/05/20 Reported Risperdal (Risperidone) 1 Mg Tablet 0.75 Tab PO QHS 30 03/05/20 Reported Norvasc (Amlodipine Besylate) 10 Mg Tablet 10 Mg PO DAILY 03/05/20 Reported Hydrocodone-Apap 7.5-325 (Hydrocodone Bit/Acetaminophen) 1 Tab Tablet 1 Tab PO PRN Q6HRS PRN 03/05/20 Reported Myrbetriq (Mirabegron) 25 Mg Tab.er.24h 25 Mg PO DAILY 03/05/20 Reported Lasix (Furosemide) 20 Mg Tablet 1 Tab PO DAILY 30 03/05/20 Reported Cymbalta (Duloxetine Hcl) 30 Mg Capsule.dr 1 Cap PO DAILY 03/05/20 Reported Impression . IMPRESSION: 1. Acute hypoxemic respiratory failure secondary to pneumonia, recent SARS-CoV-2 positive 2. Abnormal chest x-ray. Possible viral pneumonia, bacterial pneumonia 3. Pneumonia. 4. Elevated troponin/non-ST segment elevation AR 5. Acute kidney injury. 6. Hyponatremia. 7. Fever 8. COVID-19 viral pneumonia Plan . Discussed case with RN, case discussed with appointed D AIDAA. Patient is now DNR I totally concur with no intubation. Quality of life prior to admission was poor, patient critically ill, chances of recovery close to nilll We will initiate morphine drip Appreciate ID support Continue BiPAP Empiric antibiotics per ID Bronchodilators DVT GI prophylaxis Steroids Case discussed with Dr. Swartz, Case discussed with RN and RT Total cumulative critical care time of 30 minutes reviewing data, labs, chest x- ray, and formulating a plan. ALLISON CARRERO MD Mar 08, 2020 09:26
[2020-03-08] MEDS ORDERED: NALOXONE 0.4 MG/ML VIAL. IV PRN (10:30)
[2020-03-08] MEDS ORDERED: DEXMEDETOMIDINE 400 MCG in IV NORMAL SALINE 100ML 96 ML IV PRN (10:30)
--- NOTE | 2020-03-08 10:30 | NUR ---
Pt status decompensating. O2Sats in 80's, RR 50's, ST 130's. Pt placed back on bipap. Discussed pt status with Dr. Giles and Dr. Swartz. Both physicians agree that intubating the patient is not in her best interest. Call made to pts court appointed direct sales representative, Judge Osei and discussed patient status. Verbally requested that patient be made a do not resuscitate. Witnessed by 2nd nurse, Sandra James RN.
[2020-03-08] MEDS ORDERED: FUROSEMIDE 40 MG/4 ML VIAL. IVP ONE (11:00)
[2020-03-08] MEDS: IV NORMAL SALINE 1000ML BAG 1,000 ML IV SCH (11:48)
[2020-03-08] MEDS: AMINO AC 3%/ELECTROLYTE/GLYCER 1,000 ML IV SCH (11:49)
[2020-03-08] MEDS: MORPHINE SULFATE 30 ML IV PRN ×4 (13:38→23:35)
--- NOTE | 2020-03-08 15:39 | NUR ---
SS following up with discharge planning. SS reviewed pt chart and discussed with pt RN. Pt DNR now. Pt COVID19 positive. Pt on IV Zosyn, IV Zyvox, and PPN. Pt on Morphine drip. SS will continue to follow for discharge planning.
--- NOTE | 2020-03-08 17:19 | PDOC ---
PROGRESS NOTES Chief Complaint Chief Complaint A/P: Acute hypoxic respiratory failure - likely related to COVID 19 pneumonia. struggling to breathing this AM on vapotherm and bipap. Sepsis - related to above Pneumonia - Right upper lobe and left middle lobe, on antibiotics, likely gram negative, but also possibly viral from COVID 19. Elevated troponin - likely type II demand ischemia from hypoxia, Hyponatremia - likely hypovolemic and nutritional deficit, Severe protein calorie malnutrition - related to COVID 19 pneumonia Transaminitis - AST elevation possibly related to COVID syndrome Anxiety - Arthritis - has some bilateral LE contractures GERD - Hypertension - Schizoaffective disorder plan discussed case with RN, REBECCA and pulm attending. decision made DNR. quality of life poor prior to admission initiated morphine drip, prn ativan continue Empiric antibiotics per ID Bronchodilators, steroids DVT GI prophylaxis Total cumulative critical care time of 30 minutes History of Present Illness History of Present Illness Ms. Leija is a 79yo F SNF resident of [facility] w/ PMHx Anxiety, Arthritis, GERD, Glaucoma, Hypertension, anemia, schizoaffective disorder who presents to ED via EMS from [facility] with decreased oxygen saturation. Patient was on 4 L nasal cannula with an oxygen saturation of 73%. In ED she was on 10 L nonrebreather with oxygen saturations in the 90s. Febrile with temperature of 101.4F. Was recently diagnosed with SARS-CoV-2 (COVID19) at [facility], lab report not available, unclear what day she was tested positive, though there is report of a small cluster of cases from that facility. Patient has no complaints, but when asked about shortness of breath and cough she says yes. She denies any headache chest pain. Visibly with rapid shallow breathing. Somewhat difficult to understand CXR with right upper lobe and left perihilar infiltrates. ABG 7.42/30 8/65 on 10 L. WBC 7.8, Hb 10.4, platelets 270, NA 128, K4.4, BUN 15, CR 1.2, glucose 104, calcium 8.2, albumin 2.4, bili 0.3, AST elevated at 70, ALT 39, alk phos 53, BNP 899, troponin 0 0.098, lactate normal. Admitted to ICU COVID unit for further care. Vitals Vitals Vital Signs Date Time Temp Pulse Resp B/P (MAP) Pulse Ox O2 Delivery O2 Flow Rate FiO2 03/08/20 17:03 94 BiPAP/CPAP 40.0 03/08/20 17:00 91 23 97/49 (65) 03/08/20 16:00 98.7 98.7 Physical Exam Physical Exam GENERAL: Awake female, on a BiPAP. VITAL SIGNS: stable HEENT: Both pupils are round and reacting. No conjunctival lesion, no lesion in the mouth. NECK: Supple, no JVP, no lymphadenopathy. LUNGS: Clear. HEART: S1, S2 regular. ABDOMEN: Benign. EXTREMITIES: No edema, cyanosis. SKIN: Unremarkable. NEUROLOGIC: The patient is alert, awake and appropriate. No focal neurologic deficit, although the communication is limited because of the BiPAP as well as some confusion and some memory gaps according to the RN. General: Alert, Cooperative, severe distress Heart: Regular rate, Normal S1, Normal S2 Lungs: Clear Extremities: No clubbing, No cyanosis, No edema, Normal pulses, No tenderness/swelling Skin: No rashes, No breakdown, No significant lesion Labs LABS Laboratory Tests Test 03/08/20 04:33 O2 Saturation 95 % (92-99) Arterial Blood pH 7.42 (7.35-7.45) Arterial Blood pCO2 at Patient Temp 34 mmHg (35-46) Arterial Blood pO2 at Patient Temp 77 mmHg (65-108) Arterial Blood HCO3 21 mmol/L (21-28) Arterial Blood Base Excess -2 mmol/L (-3-3) FiO2 100 Assessment and Plan Assessmemt and Plan Problems Medical Problems: (1) COVID-19 Status: Acute (2) Elevated brain natriuretic peptide (BNP) level Status: Acute (3) Elevated troponin Status: Acute (4) Hypoxia Status: Acute (5) Pneumonia Status: Acute Comment Review of Relevant I have reviewed the following items lena (where applicable) has been applied. Labs Laboratory Tests Test 03/07/20 08:38 03/08/20 04:33 O2 Saturation 89 % (92-99) 95 % (92-99) Arterial Blood pH 7.40 (7.35-7.45) 7.42 (7.35-7.45) Arterial Blood pCO2 at Patient Temp 33 mmHg (35-46) 34 mmHg (35-46) Arterial Blood pO2 at Patient Temp 59 mmHg (65-108) 77 mmHg (65-108) Arterial Blood HCO3 20 mmol/L (21-28) 21 mmol/L (21-28) Arterial Blood Base Excess -4 mmol/L (-3-3) -2 mmol/L (-3-3) FiO2 60% 100 Laboratory Tests Test 03/08/20 04:33 O2 Saturation 95 % (92-99) Arterial Blood pH 7.42 (7.35-7.45) Arterial Blood pCO2 at Patient Temp 34 mmHg (35-46) Arterial Blood pO2 at Patient Temp 77 mmHg (65-108) Arterial Blood HCO3 21 mmol/L (21-28) Arterial Blood Base Excess -2 mmol/L (-3-3) FiO2 100 Microbiology 03/05/20 Blood Culture - Preliminary, Resulted NO GROWTH AFTER 3 DAYS Medications Current Medications Acetaminophen (Tylenol) 1,000 mg 1X ONCE PO Last administered on 03/05/20at 01:48; Start 03/05/20 at 01:00; Stop 03/05/20 at 01:01; Status DC Aspirin (Aspirin Chewable) 324 mg 1X ONCE PO Last administered on 03/05/20at 03:15; Start 03/05/20 at 02:45; Stop 03/05/20 at 02:46; Status DC Ceftriaxone Sodium (Rocephin) 1 gm 1X ONCE IVP Last administered on 03/05/20at 03:15; Start 03/05/20 at 02:45; Stop 03/05/20 at 02:46; Status DC Azithromycin 250 ml @ 250 mls/hr 1X ONCE IV Last administered on 03/05/20at 03:16; Start 03/05/20 at 02:45; Stop 03/05/20 at 03:44; Status DC Enoxaparin Sodium (Lovenox 40mg Syringe) 40 mg Q12HR SQ Last administered on 03/08/20at 08:03; Start 03/05/20 at 09:00 Acetaminophen (Tylenol) 500 mg PRN Q4HRS PRN PO MILD PAIN / TEMP > 100.3'F Last administered on 03/07/20at 09:36; Start 03/05/20 at 08:15 Amlodipine Besylate (Norvasc) 10 mg DAILY PO Last administered on 03/07/20at 09:08; Start 03/05/20 at 09:00 Duloxetine HCl (Cymbalta) 30 mg DAILY PO Last administered on 03/07/20at 09:07; Start 03/05/20 at 09:00 Guaifenesin (Robitussin Dm) 10 ml QID PO Last administered on 03/06/20at 08:20; Start 03/05/20 at 09:00; Stop 03/06/20 at 17:39; Status DC Acetaminophen/ Hydrocodone Bitart (Lortab 7.5/325) 1 tab PRN Q6HRS PRN PO MODERATE PAIN; Start 03/05/20 at 08:15 Risperidone (RisperDAL) 0.75 mg QHS PO Last administered on 03/07/20at 20:57; Start 03/05/20 at 21:00 Timolol Maleate (Timoptic 0.25% [facility]) 1 drop DAILY OU Last administered on 03/08/20at 09:10; Start 03/05/20 at 09:00 Olanzapine (ZyPREXA ZYDIS) 5 mg PRN BID PRN PO anxiety/agitation; Start 08/13 at 08:15 Ondansetron HCl (Zofran) 4 mg PRN Q6HRS PRN IVP NAUSEA/VOMITING; Start 03/05/20 at 08:30 Methylprednisolone Sodium Succinate (SOLU-Medrol 40MG VIAL) 40 mg Q12HR IV Last administered on 03/08/20at 08:04; Start 03/05/20 at 21:00 Methylprednisolone Sodium Succinate (SOLU-Medrol 40MG VIAL) 80 mg 1X ONCE IV ; Start 03/05/20 at 11:00; Stop 03/05/20 at 10:50; Status DC Methylprednisolone Sodium Succinate (SOLU-Medrol 125MG VIAL) 80 mg 1X ONCE IV Last administered on 03/05/20at 11:16; Start 03/05/20 at 11:00; Stop 03/05/20 at 11:01; Status DC Famotidine (Pepcid Vial) 20 mg QHS IVP Last administered on 03/07/20at 20:57; Start 03/05/20 at 21:00 Lorazepam (Ativan Inj) 0.5 mg PRN BID PRN IVP ANXIETY / AGITATION Last administered on 03/08/20at 08:04; Start 03/05/20 at 16:30; Stop 03/08/20 at 11:30; Status DC Morphine Sulfate (Morphine Sulfate) 4 mg PRN Q4HRS PRN IV PAIN Last administered on 03/05/20at 23:52; Start 03/05/20 at 17:30; Stop 03/08/20 at 10:42; Status DC Sodium Chloride 1,000 ml @ 75 mls/hr [id number] IV Last administered on 03/07/20at 23:56; Start 03/06/20 at 10:00; Stop 03/08/20 at 15:03; Status DC Amino Acids/ Glycerin/ Electrolytes 1,000 ml @ 80 mls/hr [id number] IV Last administered on 03/08/20at 11:49; Start 03/06/20 at 10:00 Zinc Sulfate (Orazinc) 220 mg DAILY PO Last administered on 03/07/20at 09:07; Start 03/06/20 at 10:00 Linezolid/Dextrose 300 ml @ 300 mls/hr Q12HR IV Last administered on 03/08/20at 08:03; Start 03/06/20 at 13:00 Piperacillin Sod/ Tazobactam Sod 3.375 gm/Sodium Chloride 50 ml @ 100 mls/hr Q6HRS IV Last administered on 03/08/20at 11:50; Start 03/06/20 at 12:30 Lactobacillus Rhamnosus (Culturelle) 1 cap BID PO Last administered on 03/07/20at 21:00; Start 03/06/20 at 21:00 Dextrose (Dextrose 50%-Water Syringe) 25 gm STK-MED ONCE IV ; Start 03/06/20 at 17:48; Stop 03/06/20 at 17:48; Status DC Sterile Water (WATER for RESP) 1,000 ml CONT PRN INH VIA VAPOTHERM DEVICE Last administered on 03/07/20at 17:37; Start 03/07/20 at 13:30 Dexmedetomidine HCl 400 mcg/ Sodium Chloride 100 ml @ 0 mls/hr CONT PRN IV SEE COMMENTS; Start 03/08/20 at 10:30 Naloxone HCl (Narcan) 0.4 mg PRN Q2MIN PRN IV SEE INSTRUCTIONS; Start 03/08/20 at 10:30 Sodium Chloride 1,000 ml @ 25 mls/hr Q24H IV Last administered on 03/08/20at 11:48; Start 7/15/20 at 11:00 Morphine Sulfate 30 ml @ 2 mls/hr CONT PRN IV PER PROTOCOL Last administered on 03/08/20at 17:03; Start 03/08/20 at 10:30 Furosemide (Lasix) 40 mg 1X ONCE IVP Last administered on 03/08/20at 10:48; Start 03/08/20 at 11:00; Stop 03/08/20 at 11:01; Status DC Lorazepam (Ativan Inj) 4 mg PRN Q2HRS PRN IVP ANXIETY / AGITATION Last administered on 03/08/20at 11:52; Start 03/08/20 at 11:30 Active Scripts Active Reported Zofran (Ondansetron Hcl) 4 Mg Tablet 1 Tab PO Q6HRS Tylenol (Acetaminophen) 325 Mg Tablet 0 PO PRN Q4HRS Tussin Dm Cough & Chest Syrup (Guaifenesin/Dextromethorphan) 118 Ml Syrup 10 Ml PO QID 12 Days Timoptic 0.25% (Timolol Maleate) 5 Ml Drops 1 Drop LEFTEYE DAILY 30 Days Risperdal (Risperidone) 1 Mg Tablet 0.75 Tab PO QHS 30 Days Norvasc (Amlodipine Besylate) 10 Mg Tablet 10 Mg PO DAILY Hydrocodone-Apap 7.5-325 (Hydrocodone Bit/Acetaminophen) 1 Tab Tablet 1 Tab PO PRN Q6HRS PRN Myrbetriq (Mirabegron) 25 Mg Tab.er.24h 25 Mg PO DAILY Lasix (Furosemide) 20 Mg Tablet 1 Tab PO DAILY 30 Days Cymbalta (Duloxetine Hcl) 30 Mg Capsule. 1 Cap PO DAILY Vitals/I & O Vital Sign - Last 24 Hours 03/07/20 03/07/20 03/07/20 03/07/20 18:00 19:00 19:33 19:48 Pulse 96 101 Resp 54 45 B/P (MAP) 119/63 (81) Pulse Ox 90 90 90 90 O2 Delivery vapotherm vapotherm Vapotherm BiPAP/CPAP O2 Flow Rate 40.0 40.0 40.0 03/07/20 03/07/20 03/07/20 03/07/20 20:00 20:00 21:00 22:00 Temp 98.1 98.1 Pulse 96 86 103 Resp 45 46 43 B/P (MAP) 119/68 (85) 104/61 (75) 144/65 (91) Pulse Ox 75 90 94 O2 Delivery BiPAP/CPAP Bi-pap vapotherm BiPAP/CPAP 03/07/20 03/07/20 03/07/20 03/07/20 23:00 23:05 23:59 23:59 Temp 98.1 98.1 Pulse 103 105 Resp 45 29 B/P (MAP) 132/68 (89) 149/61 (90) Pulse Ox 94 93 75 O2 Delivery BiPAP/CPAP BiPAP/CPAP Bi-pap BiPAP/CPAP 03/08/20 03/08/20 03/08/20 03/08/20 01:00 02:00 03:00 04:00 Pulse 107 106 107 Resp 28 32 29 B/P (MAP) 144/60 (88) 146/68 (94) 147/64 (91) Pulse Ox 94 92 92 O2 Delivery BiPAP/CPAP BiPAP/CPAP BiPAP/CPAP Bi-pap 03/08/20 03/08/20 03/08/20 03/08/20 04:00 04:00 05:00 06:00 Temp 98.3 98.3 Pulse 109 112 114 Resp 29 45 32 B/P (MAP) 147/65 (92) 146/71 (96) 144/72 (96) Pulse Ox 75 92 92 97 O2 Delivery BiPAP/CPAP BiPAP/CPAP BiPAP/CPAP BiPAP/CPAP 03/08/20 03/08/20 03/08/20 03/08/20 07:00 07:25 07:40 08:00 Temp 100.5 100.5 Pulse 113 116 Resp 45 51 B/P (MAP) 168/74 (105) 159/78 (105) Pulse Ox 95 93 91 92 O2 Delivery BiPAP/CPAP BiPAP/CPAP Vapotherm vapotherm O2 Flow Rate 40.0 40.0 03/08/20 03/08/20 03/08/20 03/08/20 08:00 09:00 10:00 11:00 Pulse 115 146 138 Resp 50 55 54 B/P (MAP) 158/65 (96) 160/96 (117) 160/73 (102) Pulse Ox 93 84 93 O2 Delivery Nasal Cannula vapotherm BiPAP/CPAP BiPAP/CPAP O2 Flow Rate 40.0 40.0 40.0 40.0 03/08/20 03/08/20 03/08/20 03/08/20 11:29 12:00 12:00 13:00 Temp 100.9 100.9 Pulse 132 102 Resp 54 34 B/P (MAP) 149/62 (91) 91/47 (62) Pulse Ox 92 91 89 O2 Delivery BiPAP/CPAP BiPAP/CPAP Bi-pap BiPAP/CPAP O2 Flow Rate 40.0 03/08/20 03/08/20 03/08/20 03/08/20 13:38 14:00 15:00 15:01 Pulse 100 95 Resp 35 29 25 25 B/P (MAP) 97/50 (66) 100/47 (64) Pulse Ox 91 89 89 89 O2 Delivery BiPAP/CPAP BiPAP/CPAP BiPAP/CPAP BiPAP/CPAP O2 Flow Rate 40.0 03/08/20 03/08/20 03/08/20 03/08/20 16:00 16:00 16:44 17:00 Temp 98.7 98.7 Pulse 91 91 Resp 24 23 B/P (MAP) 108/53 (71) 97/49 (65) Pulse Ox 94 94 93 O2 Delivery Bi-pap BiPAP/CPAP BiPAP/CPAP BiPAP/CPAP 03/08/20 17:03 Pulse Ox 94 O2 Delivery BiPAP/CPAP O2 Flow Rate 40.0 Intake and Output 03/07/20 03/07/20 03/08/20 15:00 23:00 07:00 Intake Total 1350 ml 50 ml 2780 ml Output Total 1625 ml 900 ml Balance 1350 ml -1575 ml 1880 ml Justicifation of Admission Dx: Justifications for Admission: Justification of Admission Dx: Yes Aspiration Pneumonia: Hypoxemia RICK STARR MD Mar 08, 2020 17:19
[2020-03-08] MEDS: FAMOTIDINE 20 MG/2 ML VIAL IVP SCH (21:00)
[2020-03-08] MEDS: risperiDONE 0.25 MG TABLET. PO SCH (21:00)
[2020-03-09] VITALS (7 sets, daily range): BP systolic 95–109; BP diastolic 41–60
[2020-03-09] MEDS: AMINO AC 3%/ELECTROLYTE/GLYCER 1,000 ML IV SCH ×2 (01:53→13:28)
[2020-03-09] MEDS: MORPHINE SULFATE 30 ML IV PRN ×5 (02:40→17:28)
[2020-03-09] MEDS: PIPERACILLIN/TAZOBACTAM 3.375 GM in IV NORMAL SALINE 50ML 50 ML IV SCH ×2 (05:52→11:10)
--- NOTE | 2020-03-09 08:11 | PDOC ---
Infectious Disease Note Subjective Subjective pt is cont to be on BiPap Unresponsive ROS ROS No nausea vomiting diarrhea Vital Sign Vital Signs Vital Signs Date Time Temp Pulse Resp B/P (MAP) Pulse Ox O2 Delivery O2 Flow Rate FiO2 03/09/20 05:50 87 40.0 03/09/20 04:00 97.4 93 22 109/57 (74) BiPAP/CPAP 97.4 Physical Exam PHYSICAL EXAM GENERAL: Awake female, on a BiPAP. VITAL SIGNS: stable HEENT: Both pupils are round and reacting. No conjunctival lesion, no lesion in the mouth. NECK: Supple, no JVP, no lymphadenopathy. LUNGS: Clear. HEART: S1, S2 regular. ABDOMEN: Benign. EXTREMITIES: No edema, cyanosis. SKIN: Unremarkable. NEUROLOGIC: The patient is alert, awake and appropriate. No focal neurologic deficit, although the communication is limited because of the BiPAP as well as some confusion and some memory gaps according to the RN. Labs Micro Microbiology 03/05/20 Blood Culture - Preliminary, Resulted NO GROWTH AFTER 1 DAY Objective Assessment IMPRESSION: 1. COVID-19 positive 2. Fever. 3. Pulmonary infiltrate. 4. Renal insufficiency. 5. Obesity. 6. Chronic obstructive pulmonary disease. 7. Pulmonary infiltrate. Plan Plan of Care cont antibiotics cont supportive care Palliative care is decided CATHERINE BELTRE MD Mar 09, 2020 08:10
[2020-03-09] MEDS: amLODIPine BESYLATE 10 MG TABLET PO SCH (09:00)
[2020-03-09] MEDS: DULoxetine HCL 30 MG CAPSULE.DR PO SCH (09:00)
[2020-03-09] MEDS: ZINC SULFATE 220 MG CAPSULE. PO SCH (09:00)
[2020-03-09] MEDS: LACTOBACILLUS RHAMNOSUS GG 1 CAPSULE. PO SCH (09:00)
[2020-03-09] MEDS: TIMOLOL 0.25% OPHTH SOLUTION 5ML BOTTLE. OU SCH (09:00)
[2020-03-09] MEDS: methylPREDNISolone SOD SUCC PF 40 MG/ML VIAL. IV SCH (09:05)
[2020-03-09] MEDS: ENOXAPARIN 40 MG/0.4 ML SYRINGE. SQ SCH (09:06)
[2020-03-09 09:42] LABS: BASE EXCESS ABG -6 mmol/L (-3-3); HCO3 ABG 22 mmol/L (21-28); PCO2 ABG 51 mmHg (35-46); PO2 ABG 64 mmHg (65-108); SAT O2 ABG 88 % (92-99)
[2020-03-09 10:15] LABS: FIO2 ABG 100
--- NOTE | 2020-03-09 10:28 | PDOC ---
PULMONARY PROGRESS NOTES Subjective Patient on BiPAP, currently on morphine drip, terminal illness. Vitals Vital Signs Date Time Temp Pulse Resp B/P (MAP) Pulse Ox O2 Delivery O2 Flow Rate FiO2 03/09/20 09:26 BiPAP/CPAP 03/09/20 09:22 91 03/09/20 08:00 40.0 03/09/20 08:00 97.7 93 13 104/50 (68) 97.7 Comments Patient somewhat in sync with BiPAP Cardiovascular: S2 Labs Laboratory Tests Test 03/08/20 04:33 03/09/20 08:00 O2 Saturation 95 % (92-99) 88 % (92-99) Arterial Blood pH 7.42 (7.35-7.45) 7.25 (7.35-7.45) Arterial Blood pCO2 at Patient Temp 34 mmHg (35-46) 51 mmHg (35-46) Arterial Blood pO2 at Patient Temp 77 mmHg (65-108) 64 mmHg (65-108) Arterial Blood HCO3 21 mmol/L (21-28) 22 mmol/L (21-28) Arterial Blood Base Excess -2 mmol/L (-3-3) -6 mmol/L (-3-3) FiO2 100 100 Laboratory Tests Test 03/09/20 08:00 O2 Saturation 88 % (92-99) Arterial Blood pH 7.25 (7.35-7.45) Arterial Blood pCO2 at Patient Temp 51 mmHg (35-46) Arterial Blood pO2 at Patient Temp 64 mmHg (65-108) Arterial Blood HCO3 22 mmol/L (21-28) Arterial Blood Base Excess -6 mmol/L (-3-3) FiO2 100 Medications Active Scripts Medications Dose Route/Sig Max Daily Dose Days Date Category Zofran (Ondansetron Hcl) 4 Mg Tablet 1 Tab PO Q6HRS 03/05/20 Reported Tylenol (Acetaminophen) 325 Mg Tablet 0 PO PRN Q4HRS 03/05/20 Reported Tussin Dm Cough & Chest Syrup (Guaifenesin/Dextromethorphan) 118 Ml Syrup 10 Ml PO QID 12 03/05/20 Reported Timoptic 0.25% (Timolol Maleate) 5 Ml Drops 1 Drop LEFTEYE DAILY 30 03/05/20 Reported Risperdal (Risperidone) 1 Mg Tablet 0.75 Tab PO QHS 30 03/05/20 Reported Norvasc (Amlodipine Besylate) 10 Mg Tablet 10 Mg PO DAILY 03/05/20 Reported Hydrocodone-Apap 7.5-325 (Hydrocodone Bit/Acetaminophen) 1 Tab Tablet 1 Tab PO PRN Q6HRS PRN 03/05/20 Reported Myrbetriq (Mirabegron) 25 Mg Tab.er.24h 25 Mg PO DAILY 03/05/20 Reported Lasix (Furosemide) 20 Mg Tablet 1 Tab PO DAILY 30 03/05/20 Reported Cymbalta (Duloxetine Hcl) 30 Mg Capsule.dr 1 Cap PO DAILY 03/05/20 Reported Impression . IMPRESSION: 1. Acute hypoxemic respiratory failure secondary to pneumonia, recent SARS-CoV-2 positive 2. Abnormal chest x-ray. Possible viral pneumonia, bacterial pneumonia 3. Pneumonia. 4. Elevated troponin/non-ST segment elevation [place] 5. Acute kidney injury. 6. Hyponatremia. 7. Fever 8. COVID-19 viral pneumonia Plan . Continue comfort care, patient's family to visit sometime today. Continue IV morphine ALLISON CARRERO MD Mar 09, 2020 10:28
[2020-03-09] MEDS: IV NORMAL SALINE 1000ML BAG 1,000 ML IV SCH (11:09)
--- NOTE | 2020-03-09 13:58 | PDOC ---
PROGRESS NOTES Chief Complaint Chief Complaint A/P: Acute hypoxic respiratory failure - likely related to COVID 19 pneumonia. Sepsis - related to above Pneumonia - Right upper lobe and left middle lobe, on antibiotics, likely gram negative, but also possibly viral from COVID 19. Elevated troponin - likely type II demand ischemia from hypoxia, Hyponatremia - likely hypovolemic and nutritional deficit, Severe protein calorie malnutrition - related to COVID 19 pneumonia Transaminitis - AST elevation possibly related to COVID syndrome Anxiety Arthritis - has some bilateral LE contractures GERD Hypertension Schizoaffective disorder plan discussed case with RN, REBECCA and pulm attending. decision made DNR. quality of life poor prior to admission initiated morphine drip, prn ativan continue Empiric antibiotics per ID Bronchodilators, steroids DVT GI prophylaxis Total cumulative critical care time of 30 minutes History of Present Illness History of Present Illness Ms. Leija is a 79yo F SNF resident of [facility] w/ PMHx Anxiety, Arthritis, GERD, Glaucoma, Hypertension, anemia, schizoaffective disorder who presents to ED via EMS from [facility] with decreased oxygen saturation. Patient was on 4 L nasal cannula with an oxygen saturation of 73%. In ED she was on 10 L nonrebreather with oxygen saturations in the 90s. Febrile with temperature of 101.4F. Was recently diagnosed with SARS-CoV-2 (COVID19) at [facility], lab report not available, unclear what day she was tested positive, though there is report of a small cluster of cases from that facility. Patient has no complaints, but when asked about shortness of breath and cough she says yes. She denies any headache chest pain. Visibly with rapid shallow breathing. Somewhat difficult to understand CXR with right upper lobe and left perihilar infiltrates. ABG 7.42/30 8/65 on 10 L. WBC 7.8, Hb 10.4, platelets 270, NA 128, K4.4, BUN 15, CR 1.2, glucose 104, calcium 8.2, albumin 2.4, bili 0.3, AST elevated at 70, ALT 39, alk phos 53, BNP 899, troponin 0 0.098, lactate normal. Admitted to ICU COVID unit for further care. Vitals Vitals Vital Signs Date Time Temp Pulse Resp B/P (MAP) Pulse Ox O2 Delivery O2 Flow Rate FiO2 03/09/20 13:27 BiPAP/CPAP 03/09/20 12:00 90 11 95/60 (72) 89 03/09/20 11:43 40.0 03/09/20 08:00 97.7 97.7 Physical Exam Physical Exam GENERAL: Awake female, on a BiPAP. VITAL SIGNS: stable HEENT: Both pupils are round and reacting. No conjunctival lesion, no lesion in the mouth. NECK: Supple, no JVP, no lymphadenopathy. LUNGS: Clear. HEART: S1, S2 regular. ABDOMEN: Benign. EXTREMITIES: No edema, cyanosis. SKIN: Unremarkable. NEUROLOGIC: The patient is alert, awake and appropriate. No focal neurologic deficit, although the communication is limited because of the BiPAP as well as some confusion and some memory gaps according to the RN. General: Alert, Cooperative, severe distress Heart: Regular rate, Normal S1, Normal S2 Lungs: Clear Extremities: No clubbing, No cyanosis, No edema, Normal pulses, No tenderness/swelling Skin: No rashes, No breakdown, No significant lesion Labs LABS Laboratory Tests Test 03/09/20 08:00 O2 Saturation 88 % (92-99) Arterial Blood pH 7.25 (7.35-7.45) Arterial Blood pCO2 at Patient Temp 51 mmHg (35-46) Arterial Blood pO2 at Patient Temp 64 mmHg (65-108) Arterial Blood HCO3 22 mmol/L (21-28) Arterial Blood Base Excess -6 mmol/L (-3-3) FiO2 100 Assessment and Plan Assessmemt and Plan Problems Medical Problems: (1) COVID-19 Status: Acute (2) Elevated brain natriuretic peptide (BNP) level Status: Acute (3) Elevated troponin Status: Acute (4) Hypoxia Status: Acute (5) Pneumonia Status: Acute Comment Review of Relevant I have reviewed the following items lena (where applicable) has been applied. Labs Laboratory Tests Test 03/08/20 04:33 03/09/20 08:00 O2 Saturation 95 % (92-99) 88 % (92-99) Arterial Blood pH 7.42 (7.35-7.45) 7.25 (7.35-7.45) Arterial Blood pCO2 at Patient Temp 34 mmHg (35-46) 51 mmHg (35-46) Arterial Blood pO2 at Patient Temp 77 mmHg (65-108) 64 mmHg (65-108) Arterial Blood HCO3 21 mmol/L (21-28) 22 mmol/L (21-28) Arterial Blood Base Excess -2 mmol/L (-3-3) -6 mmol/L (-3-3) FiO2 100 100 Laboratory Tests Test 03/09/20 08:00 O2 Saturation 88 % (92-99) Arterial Blood pH 7.25 (7.35-7.45) Arterial Blood pCO2 at Patient Temp 51 mmHg (35-46) Arterial Blood pO2 at Patient Temp 64 mmHg (65-108) Arterial Blood HCO3 22 mmol/L (21-28) Arterial Blood Base Excess -6 mmol/L (-3-3) FiO2 100 Microbiology 03/05/20 Blood Culture - Preliminary, Resulted NO GROWTH AFTER 4 DAYS Medications Current Medications Acetaminophen (Tylenol) 1,000 mg 1X ONCE PO Last administered on 03/05/20 01:48; Start 03/05/20 at 01:00; Stop 03/05/20 at 01:01; Status DC Aspirin (Aspirin Chewable) 324 mg 1X ONCE PO Last administered on 03/05/20 03:15; Start 03/05/20 at 02:45; Stop 03/05/20 at 02:46; Status DC Ceftriaxone Sodium (Rocephin) 1 gm 1X ONCE IVP Last administered on 03/05/20 03:15; Start 03/05/20 at 02:45; Stop 03/05/20 at 02:46; Status DC Azithromycin 250 ml @ 250 mls/hr 1X ONCE IV Last administered on 03/05/20 03:16; Start 03/05/20 at 02:45; Stop 03/05/20 at 03:44; Status DC Enoxaparin Sodium (Lovenox 40mg Syringe) 40 mg Q12HR SQ Last administered on 03/09/20 09:06; Start 03/05/20 at 09:00 Acetaminophen (Tylenol) 500 mg PRN Q4HRS PRN PO MILD PAIN / TEMP > 100.3'F Last administered on 03/07/20 09:36; Start 03/05/20 at 08:15 Amlodipine Besylate (Norvasc) 10 mg DAILY PO Last administered on 03/07/20 09:08; Start 03/05/20 at 09:00 Duloxetine HCl (Cymbalta) 30 mg DAILY PO Last administered on 7/14/20at 09:07; Start 03/05/20 at 09:00 Guaifenesin (Robitussin Dm) 10 ml QID PO Last administered on 03/06/20at 08:20; Start 03/05/20 at 09:00; Stop 03/06/20 at 17:39; Status DC Acetaminophen/ Hydrocodone Bitart (Lortab 7.5/325) 1 tab PRN Q6HRS PRN PO MODERATE PAIN; Start 03/05/20 at 08:15 Risperidone (RisperDAL) 0.75 mg QHS PO Last administered on 03/07/20at 20:57; Start 03/05/20 at 21:00 Timolol Maleate (Timoptic 0.25% [facility]) 1 drop DAILY OU Last administered on 03/08/20at 09:10; Start 03/05/20 at 09:00 Olanzapine (ZyPREXA ZYDIS) 5 mg PRN BID PRN PO anxiety/agitation; Start 03/05/20 at 08:15 Ondansetron HCl (Zofran) 4 mg PRN Q6HRS PRN IVP NAUSEA/VOMITING; Start 03/05/20 at 08:30 Methylprednisolone Sodium Succinate (SOLU-Medrol 40MG VIAL) 40 mg Q12HR IV Last administered on 03/09/20at 09:05; Start 03/05/20 at 21:00 Methylprednisolone Sodium Succinate (SOLU-Medrol 40MG VIAL) 80 mg 1X ONCE IV ; Start 03/05/20 at 11:00; Stop 03/05/20 at 10:50; Status DC Methylprednisolone Sodium Succinate (SOLU-Medrol 125MG VIAL) 80 mg 1X ONCE IV Last administered on 03/05/20at 11:16; Start 03/05/20 at 11:00; Stop 03/05/20 at 11:01; Status DC Famotidine (Pepcid Vial) 20 mg QHS IVP Last administered on 03/08/20at 21:00; Start 03/05/20 at 21:00 Lorazepam (Ativan Inj) 0.5 mg PRN BID PRN IVP ANXIETY / AGITATION Last administered on 03/08/20at 08:04; Start 03/05/20 at 16:30; Stop 03/08/20 at 11:30; Status DC Morphine Sulfate (Morphine Sulfate) 4 mg PRN Q4HRS PRN IV PAIN Last administered on 03/05/20at 23:52; Start 03/05/20 at 17:30; Stop 03/08/20 at 10:42; Status DC Sodium Chloride 1,000 ml @ 75 mls/hr [id number] IV Last administered on 03/07/20at 23:56; Start 03/06/20 at 10:00; Stop 03/08/20 at 15:03; Status DC Amino Acids/ Glycerin/ Electrolytes 1,000 ml @ 80 mls/hr [id number] IV Last administered on 03/09/20at 13:28; Start 03/06/20 at 10:00 Zinc Sulfate (Orazinc) 220 mg DAILY PO Last administered on 03/07/20at 09:07; Start 03/06/20 at 10:00 Linezolid/Dextrose 300 ml @ 300 mls/hr Q12HR IV Last administered on 03/09/20at 09:05; Start 03/06/20 at 13:00 Piperacillin Sod/ Tazobactam Sod 3.375 gm/Sodium Chloride 50 ml @ 100 mls/hr Q6HRS IV Last administered on 03/09/20at 11:10; Start 03/06/20 at 12:30 Lactobacillus Rhamnosus (Culturelle) 1 cap BID PO Last administered on 03/07/20at 21:00; Start 03/06/20 at 21:00 Dextrose (Dextrose 50%-Water Syringe) 25 gm STK-MED ONCE IV ; Start 03/06/20 at 17:48; Stop 03/06/20 at 17:48; Status DC Sterile Water (WATER for RESP) 1,000 ml CONT PRN INH VIA VAPOTHERM DEVICE Last administered on 03/07/20at 17:37; Start 03/07/20 at 13:30 Dexmedetomidine HCl 400 mcg/ Sodium Chloride 100 ml @ 0 mls/hr CONT PRN IV SEE COMMENTS; Start 03/08/20 at 10:30 Naloxone HCl (Narcan) 0.4 mg PRN Q2MIN PRN IV SEE INSTRUCTIONS; Start 03/08/20 at 10:30 Sodium Chloride 1,000 ml @ 25 mls/hr Q24H IV Last administered on 03/09/20at 11:09; Start 03/08/20 at 11:00 Morphine Sulfate 30 ml @ 2 mls/hr CONT PRN IV PER PROTOCOL Last administered on 03/09/20at 13:27; Start 03/08/20 at 10:30 Furosemide (Lasix) 40 mg 1X ONCE IVP Last administered on 03/08/20at 10:48; Start 03/08/20 at 11:00; Stop 03/08/20 at 11:01; Status DC Lorazepam (Ativan Inj) 4 mg PRN Q2HRS PRN IVP ANXIETY / AGITATION Last administered on 03/09/20at 01:49; Start 03/08/20 at 11:30 Active Scripts Active Reported Zofran (Ondansetron Hcl) 4 Mg Tablet 1 Tab PO Q6HRS Tylenol (Acetaminophen) 325 Mg Tablet 0 PO PRN Q4HRS [facility] Dm Cough & Chest Syrup (Guaifenesin/Dextromethorphan) 118 Ml Syrup 10 Ml PO QID 12 Days Timoptic 0.25% (Timolol Maleate) 5 Ml Drops 1 Drop LEFTEYE DAILY 30 Days Risperdal (Risperidone) 1 Mg Tablet 0.75 Tab PO QHS 30 Days Norvasc (Amlodipine Besylate) 10 Mg Tablet 10 Mg PO DAILY Hydrocodone-Apap 7.5-325 (Hydrocodone Bit/Acetaminophen) 1 Tab Tablet 1 Tab PO PRN Q6HRS PRN Myrbetriq (Mirabegron) 25 Mg Tab.er.24h 25 Mg PO DAILY Lasix (Furosemide) 20 Mg Tablet 1 Tab PO DAILY 30 Days Cymbalta (Duloxetine Hcl) 30 Mg Capsule. 1 Cap PO DAILY Vitals/I & O Vital Sign - Last 24 Hours 03/08/20 03/08/20 03/08/20 03/08/20 14:00 15:00 15:01 16:00 Pulse 100 95 Resp 29 25 25 B/P (MAP) 97/50 (66) 100/47 (64) Pulse Ox 89 89 89 O2 Delivery BiPAP/CPAP BiPAP/CPAP BiPAP/CPAP Bi-pap 03/08/20 03/08/20 03/08/20 03/08/20 16:00 16:44 17:00 17:03 Temp 98.7 98.7 Pulse 91 91 Resp 24 23 B/P (MAP) 108/53 (71) 97/49 (65) Pulse Ox 94 94 93 94 O2 Delivery BiPAP/CPAP BiPAP/CPAP BiPAP/CPAP BiPAP/CPAP O2 Flow Rate 40.0 03/08/20 03/08/20 03/08/20 03/08/20 18:00 19:00 20:00 20:15 Temp 97.6 97.6 Pulse 87 83 86 Resp 21 16 18 B/P (MAP) 101/51 (68) 98/48 (65) 90/47 (61) Pulse Ox 92 93 93 93 O2 Delivery BiPAP/CPAP BiPAP/CPAP BiPAP/CPAP O2 Flow Rate 40.0 03/08/20 03/08/20 03/08/20 03/08/20 20:17 20:35 21:20 23:33 Pulse Ox 93 91 91 90 O2 Delivery BiPAP/CPAP BiPAP/CPAP O2 Flow Rate 40.0 40.0 03/08/20 03/08/20 03/09/20 03/09/20 23:35 23:59 00:19 02:40 Temp 98.3 98.3 Pulse 83 Resp 18 B/P (MAP) 100/58 (72) Pulse Ox 91 88 88 88 O2 Delivery BiPAP/CPAP O2 Flow Rate 40.0 40.0 40.0 03/09/20 03/09/20 03/09/20 03/09/20 03:13 03:26 04:00 05:50 Temp 97.4 97.4 Pulse 93 Resp 22 B/P (MAP) 109/57 (74) Pulse Ox 88 90 87 87 O2 Delivery BiPAP/CPAP BiPAP/CPAP O2 Flow Rate 40.0 40.0 03/09/20 03/09/20 03/09/20 03/09/20 08:00 08:00 09:22 09:26 Temp 97.7 97.7 Pulse 93 Resp 13 B/P (MAP) 104/50 (68) Pulse Ox 90 91 O2 Delivery BiPAP/CPAP BiPAP/CPAP BiPAP/CPAP O2 Flow Rate 40.0 03/09/20 03/09/20 03/09/20 03/09/20 11:33 11:43 12:00 13:27 Pulse 90 Resp 11 B/P (MAP) 95/60 (72) Pulse Ox 89 89 O2 Delivery BiPAP/CPAP BiPAP/CPAP BiPAP/CPAP O2 Flow Rate 40.0 Intake and Output 03/08/20 03/08/2003/09/20 15:00 23:00 07:00 Intake Total 2884 ml Output Total 1900 ml 475 ml 650 ml Balance -1900 ml -475 ml 2234 ml Justicifation of Admission Dx: Justifications for Admission: Justification of Admission Dx: Yes Aspiration Pneumonia: Hypoxemia RICK STARR MD Mar 09, 2020 13:58
--- NOTE | 2020-03-09 15:27 | NUR ---
SS following up with discharge planning. SS reviewed pt chart and discussed with pt RN. Pt COVID19 positive. Pt now DNR. Pt on Morphine drip and PRN Ativan. Pt remains on BIPAP at this time. SS will continue to follow for discharge planning.
[2020-03-09] MEDS: risperiDONE 0.25 MG TABLET. PO SCH (21:00)
[2020-03-09] MEDS: MORPHINE SULFATE 10 MG/ML VIAL. IV PRN ×2 (21:40→23:17)
[2020-03-10] VITALS: BP 50/29
--- NOTE | 2020-03-10 00:30 | NUR ---
Pt was on comfort care, and DNR. Pt at 0010 this RN and Joie RN at bedside at the time of ,we both auscultated for apical pulse and there was none, on the monitor pt was showing to be in asystole. l called and informed DR Gardiner of pt's , also called the DPOA Jerry Grant at [phone] and left a message for him to call back the ICU. [place] [facility] was informed, spoke to Sasha and she said pt was not a candidate for organ/tissue donation. I also informed Deja Leija (pt' daughter) who had been calling and checking on the pt during this visit. roofing supervisor was notified.
--- NOTE | 2020-03-10 01:40 | NUR ---
Valenzuela catheter and iv was discontinued, bed bath /personal care was completed. Pt was placed in x2 body bags. No personal belongings in the room or on patient, Joie HERMOSILLO verified this with me. All the paper work was completed. Security was informed.
--- NOTE | 2020-03-10 02:15 | NUR ---
[place] [facility] work and a handout for covid patients post mortem care, handed this to Security personnel [place] [facility].
--- NOTE | 2020-03-19 00:03 | PDOC3 ---
Discharge Summary Date of Admission: Mar 05, 2020 Date of Discharge: Mar 09, 2020 Follow-Up: Other () Admitting Diagnosis comment: DISCHARGE DX Chief Complaint A/P: Acute hypoxic respiratory failure - likely related to COVID 19 pneumonia. Sepsis - related to above Pneumonia - Right upper lobe and left middle lobe, on antibiotics, likely gram negative, but also possibly viral from COVID 19. Elevated troponin - likely type II demand ischemia from hypoxia, Hyponatremia - likely hypovolemic and nutritional deficit, Severe protein calorie malnutrition - related to COVID 19 pneumonia Transaminitis - AST elevation possibly related to COVID syndrome Anxiety Arthritis - has some bilateral LE contractures GERD Hypertension Schizoaffective disorder plan discussed case with RN, REBECCA and pulm attending. decision made DNR. quality of life poor prior to admission initiated morphine drip, prn ativan continue Empiric antibiotics per ID Bronchodilators, steroids DVT GI prophylaxis Total cumulative critical care time of 30 minutes History of Present Illness History of Present Illness Ms. Leija is a 79yo F SNF resident of [facility] w/ PMHx Anxiety, Arthritis, GERD, Glaucoma, Hypertension, anemia, schizoaffective disorder who presents to ED via EMS from [facility] with decreased oxygen saturation. Patient was on 4 L nasal cannula with an oxygen saturation of 73%. In ED she was on 10 L nonrebreather with oxygen saturations in the 90s. Febrile with temper ature of 101.4F. Was recently diagnosed with SARS-CoV-2 (COVID19) at [facility], lab report not available, unclear what day she was tested positive, though there is report of a small cluster of cases from that facility. Patient has no complaints, but when asked about shortness of breath and cough she says yes. She denies any headache chest pain. Visibly with rapid shallow breathing. Somewhat difficult to understand CXR with right upper lobe and left perihilar infiltrates. ABG 7.42/30 8/65 on 10 L. WBC 7.8, Hb 10.4, platelets 270, NA 128, K4.4, BUN 15, CR 1.2, glucose 104, calcium 8.2, albumin 2.4, bili 0.3, AST elevated at 70, ALT 39, alk phos 53, BNP 899, troponin 0 0.098, lactate normal. Admitted to ICU COVID unit for further care. Vitals Vitals Vital Signs Date Time Temp Pulse Resp B/P (MAP) Pulse Ox O2 Delivery O2 Flow Rate FiO2 03/09/20 13:27 BiPAP/CPAP 03/09/20 12:00 90 11 95/60 (72) 89 03/09/20 11:43 40.0 03/09/20 08:00 97.7 97.7 Physical Exam Physical Exam GENERAL: Awake female, on a BiPAP. VITAL SIGNS: stable HEENT: Both pupils are round and reacting. No conjunctival lesion, no lesion in the mouth. NECK: Supple, no JVP, no lymphadenopathy. LUNGS: Clear. HEART: S1, S2 regular. ABDOMEN: Benign. EXTREMITIES: No edema, cyanosis. SKIN: Unremarkable. NEUROLOGIC: The patient is alert, awake and appropriate. No focal neurologic deficit, although the communication is limited because of the BiPAP as well as some confusion and some memory gaps according to the RN. General: Alert, Cooperative, severe distress Heart: Regular rate, Normal S1, Normal S2 Lungs: Clear Extremities: No clubbing, No cyanosis, No edema, Normal pulses, No tenderness/swelling Skin: No rashes, No breakdown, No significant lesion FINAL DIAGNOSIS Problems Medical Problems: (1) COVID-19 Status: Acute (2) Elevated brain natriuretic peptide (BNP) level Status: Acute (3) Elevated troponin Status: Acute (4) Hypoxia Status: Acute (5) Pneumonia Status: Acute Brief Hospital Course Ms. Leija is a 79 old [sex] who presented with [COVID-19 SYNDROME ] CONDITION AT DISCHARGE: / Discharge Medications Current Medications Acetaminophen (Tylenol) 1,000 mg 1X ONCE PO Last administered on 03/05/20at 01:48; Start 03/05/20 at 01:00; Stop 03/05/20 at 01:01; Status DC Aspirin (Aspirin Chewable) 324 mg 1X ONCE PO Last administered on 03/05/20at 03:15; Start 03/05/20 at 02:45; Stop 03/05/20 at 02:46; Status DC Ceftriaxone Sodium (Rocephin) 1 gm 1X ONCE IVP Last administered on 03/05/20at 03:15; Start 03/05/20 at 02:45; Stop 03/05/20 at 02:46; Status DC Azithromycin 250 ml @ 250 mls/hr 1X ONCE IV Last administered on 03/05/20at 03:16; Start 03/05/20 at 02:45; Stop 03/05/20 at 03:44; Status DC Enoxaparin Sodium (Lovenox 40mg Syringe) 40 mg Q12HR SQ Last administered on 03/09/20at 09:06; Start 03/05/20 at 09:00; Stop 03/09/20 at 14:05; Status DC Acetaminophen (Tylenol) 500 mg PRN Q4HRS PRN PO MILD PAIN / TEMP > 100.3'F Last administered on 03/07/20at 09:36; Start 03/05/20 at 08:15; Stop 03/10/20 at 03:54; Status DC Amlodipine Besylate (Norvasc) 10 mg DAILY PO Last administered on 03/07/20at 09:08; Start 03/05/20 at 09:00; Stop 03/09/20 at 14:05; Status DC Duloxetine HCl (Cymbalta) 30 mg DAILY PO Last administered on 03/07/20at 09:07; Start 03/05/20 at 09:00; Stop 03/09/20 at 14:05; Status DC Guaifenesin (Robitussin Dm) 10 ml QID PO Last administered on 03/06/20at 08:20; Start 03/05/20 at 09:00; Stop 03/06/20 at 17:39; Status DC Acetaminophen/ Hydrocodone Bitart (Lortab 7.5/325) 1 tab PRN Q6HRS PRN PO MODERATE PAIN; Start 03/05/20 at 08:15; Stop 03/10/20 at 03:54; Status DC Risperidone (RisperDAL) 0.75 mg QHS PO Last administered on 03/07/20at 20:57; Start 03/05/20 at 21:00; Stop 03/10/20 at 03:54; Status DC Timolol Maleate (Timoptic 0.25% [facility]) 1 drop DAILY OU Last administered on 03/08/20at 09:10; Start 03/05/20 at 09:00; Stop 03/09/20 at 14:05; Status DC Olanzapine (ZyPREXA ZYDIS) 5 mg PRN BID PRN PO anxiety/agitation; Start 03/05/20 at 08:15; Stop 03/09/20 at 14:05; Status DC Ondansetron HCl (Zofran) 4 mg PRN Q6HRS PRN IVP NAUSEA/VOMITING; Start 03/05/20 at 08:30; Stop 03/10/20 at 03:54; Status DC Methylprednisolone Sodium Succinate (SOLU-Medrol 40MG VIAL) 40 mg Q12HR IV Last administered on 03/09/20at 09:05; Start 03/05/20 at 21:00; Stop 03/09/20 at 14:05; Status DC Methylprednisolone Sodium Succinate (SOLU-Medrol 40MG VIAL) 80 mg 1X ONCE IV ; Start 03/05/20 at 11:00; Stop 03/05/20 at 10:50; Status DC Methylprednisolone Sodium Succinate (SOLU-Medrol 125MG VIAL) 80 mg 1X ONCE IV Last administered on 03/05/20at 11:16; Start 03/05/20 at 11:00; Stop 03/05/20 at 11:01; Status DC Famotidine (Pepcid Vial) 20 mg QHS IVP Last administered on 03/08/20at 21:00; Start 03/05/20 at 21:00; Stop 03/09/20 at 14:05; Status DC Lorazepam (Ativan Inj) 0.5 mg PRN BID PRN IVP ANXIETY / AGITATION Last administered on 03/08/20at 08:04; Start 03/05/20 at 16:30; Stop 03/08/20 at 11:30; Status DC Morphine Sulfate (Morphine Sulfate) 4 mg PRN Q4HRS PRN IV PAIN Last admin istered on 03/05/20at 23:52; Start 03/05/20 at 17:30; Stop 03/08/20 at 10:42; Status DC Sodium Chloride 1,000 ml @ 75 mls/hr [id number] IV Last administered on 03/07/20at 23:56; Start 03/06/20 at 10:00; Stop 03/08/20 at 15:03; Status DC Amino Acids/ Glycerin/ Electrolytes 1,000 ml @ 80 mls/hr [id number] IV Last administered on 03/09/20at 13:28; Start 03/06/20 at 10:00; Stop 03/10/20 at 03:54; Status DC Zinc Sulfate (Orazinc) 220 mg DAILY PO Last administered on 03/07/20at 09:07; Start 03/06/20 at 10:00; Stop 03/09/20 at 14:05; Status DC Linezolid/Dextrose 300 ml @ 300 mls/hr Q12HR IV Last administered on 03/09/20at 09:05; Start 03/06/20 at 13:00; Stop 03/09/20 at 14:05; Status DC Piperacillin Sod/ Tazobactam Sod 3.375 gm/Sodium Chloride 50 ml @ 100 mls/hr Q6HRS IV Last administered on 03/09/20at 11:10; Start 03/06/20 at 12:30; Stop 03/09/20 at 14:05; Status DC Lactobacillus Rhamnosus (Culturelle) 1 cap BID PO Last administered on 03/07/20at 21:00; Start 03/06/20 at 21:00; Stop 03/09/20 at 14:05; Status DC Dextrose (Dextrose 50%-Water Syringe) 25 gm STK-MED ONCE IV ; Start 03/06/20 at 17:48; Stop 03/06/20 at 17:48; Status DC Sterile Water (WATER for RESP) 1,000 ml CONT PRN INH VIA VAPOTHERM DEVICE Last administered on 03/07/20at 17:37; Start 03/07/20 at 13:30; Stop 03/10/20 at 03:54; Status DC Dexmedetomidine HCl 400 mcg/ Sodium Chloride 100 ml @ 0 mls/hr CONT PRN IV SEE COMMENTS; Start 03/08/20 at 10:30; Stop 03/10/20 at 03:54; Status DC Naloxone HCl (Narcan) 0.4 mg PRN Q2MIN PRN IV SEE INSTRUCTIONS; Start 03/08/20 at 10:30; Stop 03/09/20 at 14:05; Status DC Sodium Chloride 1,000 ml @ 25 mls/hr Q24H IV Last administered on 03/09/20at 11:09; Start 03/08/20 at 11:00; Stop 03/10/20 at 03:54; Status DC Morphine Sulfate 30 ml @ 2 mls/hr CONT PRN IV PER PROTOCOL Last administered on 03/09/20at 17:28; Start 03/08/20 at 10:30; Stop 03/09/20 at 21:03; Status DC Furosemide (Lasix) 40 mg 1X ONCE IVP Last administered on 03/08/20at 10:48; Start 03/08/20 at 11:00; Stop 03/08/20 at 11:01; Status DC Lorazepam (Ativan Inj) 4 mg PRN Q2HRS PRN IVP ANXIETY / AGITATION Last administered on 03/09/20at 23:39; Start 03/08/20 at 11:30; Stop 03/10/20 at 03:54; Status DC Morphine Sulfate (Morphine Sulfate) 5 mg PRN Q1HR PRN IV SEVERE PAIN 7-10 Last administered on 03/09/20at 23:17; Start 03/09/20 at 21:00; Stop 03/10/20 at 03:54; Status DC Active Scripts Active Reported Zofran (Ondansetron Hcl) 4 Mg Tablet 1 Tab PO Q6HRS Tylenol (Acetaminophen) 325 Mg Tablet 0 PO PRN Q4HRS [facility] Cough & Chest Syrup (Guaifenesin/Dextromethorphan) 118 Ml Syrup 10 Ml PO QID 12 Days Timoptic 0.25% (Timolol Maleate) 5 Ml Drops 1 Drop LEFTEYE DAILY 30 Days Risperdal (Risperidone) 1 Mg Tablet 0.75 Tab PO QHS 30 Days Norvasc (Amlodipine Besylate) 10 Mg Tablet 10 Mg PO DAILY Hydrocodone-Apap 7.5-325 (Hydrocodone Bit/Acetaminophen) 1 Tab Tablet 1 Tab PO PRN Q6HRS PRN Myrbetriq (Mirabegron) 25 Mg Tab.er.24h 25 Mg PO DAILY Lasix (Furosemide) 20 Mg Tablet 1 Tab PO DAILY 30 Days Cymbalta (Duloxetine Hcl) 30 Mg Capsule.dr 1 Cap PO DAILY Allergies Allergies Coded Allergies Type Severity Reaction Last Updated Verified haloperidol Allergy Intermediate 03/09/20 Yes Disposition/Orders: Justicifation of Admission Dx: Justifications for Admission: Justification of Admission Dx: Yes Aspiration Pneumonia: Hypoxemia TIO ZAMORA MD Mar 19, 2020 00:03
== END 2020-03-10 03:00 | disposition expired | DRG 871 ==
LOC: ER 23:32 → 1 WEST ICU 03-05 02:10
PROVIDERS: ADMIT Internal Medicine; ATTEND Internal Medicine
PROC: 5A09457 Assistance with Respiratory Ventilation, 24-96 Consecutive Hours, Continuous Positive Airway Pressure (ICD-10-PCS; principal; 2020-03-05)
PROC: 5A09357 Assistance with Respiratory Ventilation, Less than 24 Consecutive Hours, Continuous Positive Airway Pressure (ICD-10-PCS; 2020-03-08)
DX: A41.89 Other specified sepsis (principal); J96.01 Acute respiratory failure with hypoxia; E43 Unspecified severe protein-calorie malnutrition; I21.4 Non-ST elevation (NSTEMI) myocardial infarction; U07.1 COVID-19; J12.89 Other viral pneumonia; E87.1 Hypo-osmolality and hyponatremia; J44.0 Chronic obstructive pulmonary disease with (acute) lower respiratory infection; N17.9 Acute kidney failure, unspecified; Z68.37 Body mass index [BMI] 37.0-37.9, adult; E66.9 Obesity, unspecified; E86.1 Hypovolemia; F25.9 Schizoaffective disorder, unspecified; F41.9 Anxiety disorder, unspecified; I10 Essential (primary) hypertension; H40.9 Unspecified glaucoma; D64.9 Anemia, unspecified; K21.9 Gastro-esophageal reflux disease without esophagitis; M19.90 Unspecified osteoarthritis, unspecified site; Z82.49 Family history of ischemic heart disease and other diseases of the circulatory system; Z99.3 Dependence on wheelchair
CPT/HCPCS: 36415; 36600; 71045; 80053; 82728; 82805; 83605; 83615; 83880; 84145; 84484; 85007; 85025; 85379; 85384; 85610; 86140; 87040; 93005; 94660; 94760; 96365; 96375; 99285; J0456; J0696; J1650; J1940; J2020; J2060; J2270; J2543; J2920; J2930; J3490; J7030; G0378; U0003-CS